=== PATIENT | female | born 1975 | race Two or more races ===

== ENCOUNTER → 2024-08-04 | Outpatient (CLI) | payer MEDICAID, SELFPAY ==
--- NOTE | 2024-08-04 13:00 | XR_ITS ---
Examination: Breast ultrasound, unilateral, right complete Date and time of exam: August 04, 2024 1340 hours INDICATIONS: Right breast sonogram February 09, 2024 10:00 nodule 10 mm, patient states right breast pain 15 days Technique: Real-time lopez scale ultrasonographic imaging performed right breast including all 4 quadrants as well as nipple retroareolar and axillary region. Findings: 10:00 oval mass lobular margins 9 x 9 mm Retroareolar cyst 6 x 9 mm 12:00 cyst 11 x 10 mm 3.9 cm right axillary lymph node IMPRESSION: BI-RADS Category 3: Probably benign findings One additional 6 month right breast sonogram follow-up is needed to document stability of solid nodules described above
--- NOTE | 2024-08-04 13:45 | XR_ITS ---
Examination: Diagnostic digital mammography, unilateral, right Computer aided detection 3-D breast Tomosynthesis, unilateral Date and time of exam: 2024 1340 hours INDICATIONS: Nodule upper outer right breast on mammogram February 09, 2024 Technique: Nonmagnified MLO, CC views of the right breast have been obtained, reconstructed from 3-D Tomosynthesis images. R2 computer aided detection program utilized for evaluation of suspicious masses and/or abnormal calcifications. 3-D Tomosynthesis images obtained. Findings: Scattered areas of fibroglandular density. Stable nodule upper outer right breast Impression: BI-RADS category 3: Probably benign findings Recommend 6 month bilateral mammography follow-up
== END | disposition home or self-care (01) ==
LOC: CDIM 13:09
PROVIDERS: PCP Physician Assistant; Referring Provider Physician Assistant; Visit Provider Physician Assistant
DX: R92.331 Mammographic heterogeneous density, right breast (principal); N63.11 Unspecified lump in the right breast, upper outer quadrant; N60.01 Solitary cyst of right breast
CPT/HCPCS: 76641; 77061; 77065; G0279

== ENCOUNTER 2024-08-18 08:56 | Outpatient (AMB) | payer MEDICAID, SELFPAY ==
--- NOTE | 2024-08-18 09:39 | ORTHONT_ITS ---
Vital signs 08/18/24 09:40 Height 1.65 m Height Method Stated Weight 104.865 kg Weight Measurement Method Standing Scale BMI 38.5 BP 140/82 H Blood Pressure Source Automatic Cuff Blood Pressure Location Right Upper Arm Position Sitting Respiration 18 Pulse 88 Pulse Source Monitor Temp 97.1 F Temp Source Temporal Artery Scan Pulse Oximetry (%) 98 Oxygen Delivery Method Room Air Med/Allergies Allergies & Medications Allergies No Known Allergies Allergy (Verified 08/18/24 09:43) Medication Reconciliation loratadine 10 mg tablet 10 mg PO QDAY 03/18/21 [History Confirmed 08/18/24] metformin 500 mg tablet 500 mg PO QDAY 03/18/21 [History Confirmed 08/18/24] celecoxib 200 mg capsule (Celebrex) 200 mg PO QDAY 11/04/22 [History Confirmed 08/18/24] divalproex 500 mg tablet,delayed release (Depakote) 500 mg PO BID 11/04/22 [History Confirmed 08/18/24] acetaminophen 650 mg tablet,extended release 650 mg PO Q12H PRN fever or pain #30 tabs 11/05/22 [Rx Confirmed 08/18/24] ibuprofen 800 mg tablet 800 mg PO Q8H PRN pain #30 tabs 11/05/22 [Rx Confirmed 08/18/24] diclofenac sodium 1 % topical gel 2 g topical QID PRN pain, moderate #100 grams 05/08/23 [Rx Confirmed 08/18/24] hydrocodone 5 mg-acetaminophen 325 mg tablet 1 tab PO Q8H PRN pain #7 tabs 05/08/23 [Rx Confirmed 08/18/24] Exam Exam Patient is in no acute distress and is cooperative with the examination today. Breathing is nonlabored. In no respiratory distress. Bilateral extremities were evaluated and demonstrates sensation intact to light touch. Palpable pedal pulses are present. No significant edema is present. Bilateral hips were examined. The patient has no pain with log roll of the hips. Internal rotation to 30 degrees and external rotation to 30 degrees is painless. Negative FADIR. The left knee was examined. The left knee is in varus alignment. Range of motion from 0-115 degrees. Knee is stable to varus and valgus as well as AP translation with <5mm. Patient has a negative McMurrays. There is no pain with patellofemoral compression and no crepitus noted. The knee is tender to palpation medially. The right knee was also examined. The right knee is in varus alignment. Range of motion from 0-120 degrees. Knee is stable to varus and valgus as well as AP translation with <5mm. Patient has a negative McMurrays. There is no pain with patellofemoral compression and no crepitus noted. The knee is tender to palpation medially. Patient has bilateral knee MRIs that demonstrate degenerative changes and severe arthritis Assessment and Plan Problem List (1) Degenerative arthritis of knee, bilateral: Status: Acute Plan: Patient is a pleasant 49-year-old female with bilateral knee pain and bilateral knee arthritis. We will get new knee x-rays as her last knee x-rays were nonwe ightbearing and are over 2 years old. She likely has significant arthritis and we will discuss different treatment options. 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 4 (4640-0928) MA Intake Visit Data Collection New Patient or Established: New Patient (never been to [facility]) Reason for Visit:: BILATERAL KNEE PAIN Seen by Clinical Staff ONLY (RN/MA): No Airways Control Specialist Required: No PCP or OBGYN visit in last 3 months: Yes Hx Now: No Do You Feel Safe at Home: Yes Authorities Contacted: N/A Questionairres Past Medical History Past Medical History Have you ever been diagnosed with any of the following: Neurological Problems Seizures: Yes (last June 2022) Cardiology Problems Congestive Heart Failure: No Hypertension: No Varicose Veins: Yes Respiratory Problems Chronic Obstructive Pulmonary Disease (COPD): No Stomache/Intestinal Problems Ulcer: No Gastroesophageal Reflux Disease: No Obesity: Yes Genital/Urinary Problems Renal Disease: No Reproductive Problems Previous Pregnancies: Yes Musculoskeletal Problems Arthritis: Yes Endocrine Problems Diabetes Mellitus Type 1: No Diabetes Mellitus Type 2: Yes Blood Problems Anemia: No Psychologic Problems Depression: No Anxiety: No Other Problems Hospitalization: Yes (seizure) Shingles: No Falls: No Blood Transfusions: No Anesthesia Reactions: No MRSA: No VRSA: No Vancomycin-Resistant Enterococci: No Chicken Pox: No Measles: No Mumps: No Cancer: No Subjective Visit Visit for: new patient and knee (BILATERAL) Immunization / Flu Flu Vaccine in the Last 12 Months: Yes Flu Vaccine Exclusion Criteria: Already Received History of Present Illness Chief complaint: bilateral knee pain Michell is a pleasant 49-year-old female with bilateral knee pain for years, right worse than left. Her pain is constant and worse with activity. She has tried physical therapy. She had no relief from 1 cortisone injection in April 2023. She takes Diclofenac. She uses a cane sometimes. XR and MRI were nonweightbearing and done a year ago. She has a history of seizures controlled with medication. BMI is 38.5%. Pain Pain level (0-10): 8 Pain duration: CONSTANT Pain location: inside (medial) and anterior Pain quality: aching and tingling Pain timing: night, increases with activity and stairs Associated signs & symptoms: numbness, weakness and stiffness Ambulatory data Ambulatory device: none Treatments Number of previous injections: 1 Improvement with previous injections: No Number of Physical Therapy sessions: 12 Improvement with PT: No Improvement with NSAIDS: no Review of Systems Review of Systems: All systems negative unless otherwise noted in HPI.
[2024-08-18 09:40] VITALS: BP 140/82; PULSE 88; RESP 18; TEMP 36.2; O2SAT 98; BMI 38.5
--- NOTE | 2024-08-18 09:47 | XR_ITS ---
Examination: Bilateral AP knees 2 views Right lateral knee left lateral knee 2 views Bilateral axial knees single view TECHNIQUE: Bilateral AP knees standing single view, bilateral PA knees standing 30 degrees flexion single view Standing right lateral knee left lateral knee 2 views Bilateral axial knees single view total 5 views Exam date and time: August 18, 2024 0957 hours INDICATIONS: Bilateral knee pain beginning 3 years ago. FINDINGS: Significant osteopenia Bilateral severe narrowing medial joint spaces, [id number] Bilateral moderate to advanced osteoarthritis patellofemoral joints No fracture or dislocation involving either knee IMPRESSION: Bilateral severe narrowing medial joint spaces, [id number]
== END 2024-08-18 09:50 | disposition home or self-care (01) ==
LOC: HODSRG 08:56
PROVIDERS: PCP Physician Assistant; Referring Provider Physician Assistant; Supervising Provider Orthopaedic Surgery Adult Reconstructive Orthopaedic Surgery; Visit Provider Orthopaedic Surgery Adult Reconstructive Orthopaedic Surgery
DX: M17.0 Bilateral primary osteoarthritis of knee (principal); M25.562 Pain in left knee; M25.561 Pain in right knee; M25.862 Other specified joint disorders, left knee; M25.861 Other specified joint disorders, right knee; E11.9 Type 2 diabetes mellitus without complications
CPT/HCPCS: 73564; 99204; G0463

== ENCOUNTER 2024-09-06 11:10 | Outpatient (AMB) | payer MEDICAID, SELFPAY ==
--- NOTE | 2024-09-06 11:22 | PD.ORTHCLVIS ---
Vital signs 09/06/24 11:35 Height 1.65 m Height Method Stated Weight 103.164 kg Weight Measurement Method Standing Scale BMI 37.8 BP 120/81 Blood Pressure Source Automatic Cuff Blood Pressure Location Left Upper Arm Position Sitting Respiration 18 Pulse 88 Pulse Source Monitor Temp 97.0 F Temp Source Temporal Artery Scan Pulse Oximetry (%) 98 Oxygen Delivery Method Room Air Med/Allergies Allergies & Medications Allergies No Known Allergies Allergy (Verified 09/06/24 11:40) Medication Reconciliation loratadine 10 mg tablet 10 mg PO QDAY 03/18/21 [History Confirmed 09/06/24] metformin 500 mg tablet 500 mg PO QDAY 03/18/21 [History Confirmed 09/06/24] celecoxib 200 mg capsule (Celebrex) 200 mg PO QDAY 11/04/22 [History Confirmed 09/06/24] divalproex 500 mg tablet,delayed release (Depakote) 500 mg PO BID 11/04/22 [History Confirmed 09/06/24] acetaminophen 650 mg tablet,extended release 650 mg PO Q12H PRN fever or pain #30 tabs 11/05/22 [Rx Confirmed 09/06/24] ibuprofen 800 mg tablet 800 mg PO Q8H PRN pain #30 tabs 11/05/22 [Rx Confirmed 09/06/24] diclofenac sodium 1 % topical gel 2 g topical QID PRN pain, moderate #100 grams 05/08/23 [Rx Confirmed 09/06/24] hydrocodone 5 mg-acetaminophen 325 mg tablet 1 tab PO Q8H PRN pain #7 tabs 05/08/23 [Rx Confirmed 09/06/24] Exam Exam Patient is in no acute distress and is cooperative with the examination today. Breathing is nonlabored. In no respiratory distress. Bilateral extremities were evaluated and demonstrates sensation intact to light touch. Palpable pedal pulses are present. No significant edema is present. Bilateral hips were examined. The patient has no pain with log roll of the hips. Internal rotation to 30 degrees and external rotation to 30 degrees is painless. Negative FADIR. The left knee was examined. The left knee is in varus alignment. Range of motion from 0-115 degrees. Knee is stable to varus and valgus as well as AP translation with <5mm. Patient has a negative McMurrays. There is no pain with patellofemoral compression and no crepitus noted. The knee is tender to palpation medially. The right knee was also examined. The right knee is in varus alignment. Range of motion from 0-120 degrees. Knee is stable to varus and valgus as well as AP translation with <5mm. Patient has a negative McMurrays. There is no pain with patellofemoral compression and no crepitus noted. The knee is tender to palpation medially. Patient has bilateral knee MRIs that demonstrate degenerative changes and severe arthritis. Bilateral knee x-rays demonstrate severe arthritis of the right knee Assessment and Plan Problem List (1) Degenerative arthritis of knee, bilateral: Status: Acute Plan: Patient is a pleasant 49-year-old female with bilateral knee pain and bilateral knee arthritis. X-rays demonstrate complete obliteration of the medial joint space. She has failed conservative treatment including injections, anti-inflammatories, and home exercise program. We discussed that she is a little bit on the younger side for a total knee replacement but she has failed conservative treatment and she reports the pain is affecting her quality life. He does consider total knee replacement as a reasonable option. We also discussed that she is at high risk for complications included to total knee replacement at her age. Her BMI is currently 38 and we discussed the weight loss as well. Given her failure of conservative treatment, we will consider total knee replacement as a reasonable option The nature and purpose of the total knee replacement, alternative method(s) of treatment, the material risks involved, and the possibility of complications were fully explained to the patient. The patient does NOT have any of the following contraindications to TKA: - Active infection of the knee joint, OR - Active systemic bacteremia, OR - Active skin infection or open wound at surgical site, OR - Neuropathic arthritis, OR - Severe, rapidly progressive neurological disease, OR - Severe medical condition that makes risks of surgery outweigh the potential benefit The patient was told the most common risks and complications associated with a total knee replacement include, but are not limited to: blood clots in the leg, fatal pulmonary embolism, dislocation of the prosthesis, intraoperative and postoperative fractures of the femur or tibia, infection, failure of the prosthesis or grafting materials, complications from anesthesia, reactions to blood transfusions, postoperative leg length inequality, instability of the knee replacement, nerve damage or injury, vascular injury, delayed wound healing, infection, other injury or even . In addition, there are risks associated with anesthesia given during this operation. Also, the patient was told that after undergoing a total knee replacement there may still be persistent pain or disability. The patient was informed that the success of this operation in part depends upon the mechanical devices which are going to be implanted and that these devices can fail or malfunction, and may need to be repaired or replaced and there are no guarantees as to the longevity of this device or its parts and that it or its parts could fail prematurely. The patient was also notified that during the course of surgery, there may be a need to use bone graft from donors, and that any bone graft used will be carefully screened for communicable diseases, including AIDS, hepatitis, Guy-Creutzfeldt, or other diseases, but despite the screening procedures, there is a small chance that they could contract one of these diseases. Finally, the patient was asked to follow completely and fully with all advice and recommended treatments, and that recovery and ultimate outcome are affected by their compliance with recommended treatment. We discussed the risks, benefits and treatment alternatives, and the patient is interested in proceeding with surgery. We will try to set this up as expeditiously as possible. Office Procedures GNS Level of Care Nursing/Assessment Patient Status: Established Patient Nursing Assessment/Reassesment: Medication Reconciliation, Update PMH in EMR and Vital Signs Coordination of Care: Complex Care and Chronic Disease 1-5, Education Complex Pt/Fam, Consent,records obtained, informed consent, Results/Orders obtained and Staff clarify orders Special Needs: Language special needs Established Patient Charge Established Patient Point Assignment: 95 Established Patient Point Charge: EP Level 3 (80-115) [facility] Level of Care Nursing/Assessment Patient Status: Established Patient Nursing Assessment/Reassesment: Medication Reconciliation, Update PMH in EMR and Vital Signs Coordination of Care: Complex Care and Chronic Disease 1-5, Education Complex Pt/Fam, Consent,records obtained, informed consent, 2-3 Insurance Autorizations needed, Results/Orders obtained and Staff clarify orders Established Patient Charge Established Patient Point Assignment: 115 Established Patient Point Charge: EP Level 3 (80-115) [place] Intake Visit Data Collection New Patient or Established: Established Patient (seen at [facility] within 3 years) Reason for Visit:: XRAY RESULTS Seen by Clinical Staff ONLY (RN/MA): No Flume Worker Required: 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 PCP or OBGYN visit in last 3 months: Yes Hx Now: No Do You Feel Safe at Home: Yes Authorities Contacted: N/A Questionairres Past Medical History Past Medical History Have you ever been diagnosed with any of the following: Neurological Problems Seizures: Yes (last June 2022) Cardiology Problems Congestive Heart Failure: No Hypertension: No Varicose Veins: Yes Respiratory Problems Chronic Obstructive Pulmonary Disease (COPD): No Smoking: No Smoking Exposure: No Stomache/Intestinal Problems Ulcer: No Gastroesophageal Reflux Disease: No Obesity: Yes Genital/Urinary Problems Renal Disease: No Reproductive Problems Previous Pregnancies: Yes Musculoskeletal Problems Arthritis: Yes Endocrine Problems Diabetes Mellitus Type 1: No Diabetes Mellitus Type 2: Yes Blood Problems Anemia: No Psychologic Problems Depression: No Anxiety: No Other Problems Hospitalization: Yes (seizure) Shingles: No Falls: No Blood Transfusions: No Anesthesia Reactions: No MRSA: No VRSA: No Vancomycin-Resistant Enterococci: No Chicken Pox: No Measles: No Mumps: No Cancer: No Subjective Visit Visit for: follow up visit and x-rays Immunization / Flu Flu Vaccine in the Last 12 Months: No Flu Vaccine Exclusion Criteria: No Exclusion Criteria History of Present Illness Chief complaint: knee pain Michell is a pleasant 49-year-old female with bilateral knee pain for years, right worse than left. Her pain is constant and worse with activity. She has tried physical therapy. She had no relief from 1 cortisone injection in April 2023. She takes Diclofenac. She uses a cane sometimes. She has a history of seizures controlled with medication. BMI is 38.5%. Pain Pain level (0-10): 10 Pain duration: ALL DAY Pain location: inside (medial) and outside (lateral) Pain quality: sharp, dull and aching Pain timing: increases with activity Associated signs & symptoms: none Ambulatory data Ambulatory device: none Treatments Number of previous injections: 1 Improvement with previous injections: No Number of Physical Therapy sessions: 12 Improvement with PT: No Improvement with NSAIDS: no Review of Systems Review of Systems: All systems negative unless otherwise noted in HPI.
[2024-09-06 11:35] VITALS: BP 120/81; PULSE 88; RESP 18; TEMP 36.1; O2SAT 98; BMI 37.8
== END 2024-09-06 11:39 | disposition home or self-care (01) ==
LOC: HODSRG 11:10
PROVIDERS: PCP Physician Assistant; Referring Provider Physician Assistant; Supervising Provider Orthopaedic Surgery Adult Reconstructive Orthopaedic Surgery; Visit Provider Orthopaedic Surgery Adult Reconstructive Orthopaedic Surgery
DX: M17.0 Bilateral primary osteoarthritis of knee (principal)
CPT/HCPCS: 99213; G0463

== ENCOUNTER 2024-10-06 09:36 | Outpatient (AMB) | payer MEDICAID, SELFPAY ==
[2024-10-06 10:21] VITALS: BP 104/74; PULSE 84; RESP 18; TEMP 36.3; O2SAT 98; BMI 37.5
--- NOTE | 2024-10-06 10:21 | ORTHONT_ITS ---
Vital signs 10/06/24 10:21 Height 1.65 m Height Method Stated Weight 102.257 kg Weight Measurement Method Standing Scale BMI 37.5 BP 104/74 Blood Pressure Source Automatic Cuff Blood Pressure Location Right Upper Arm Position Sitting Respiration 18 Pulse 84 Pulse Source Monitor Temp 97.3 F Temp Source Temporal Artery Scan Pulse Oximetry (%) 98 Oxygen Delivery Method Room Air Med/Allergies Allergies & Medications Allergies No Known Allergies Allergy (Verified 10/06/24 10:22) Medication Reconciliation loratadine 10 mg tablet 10 mg PO QDAY 03/18/21 [History Confirmed 10/06/24] metformin 500 mg tablet 500 mg PO QDAY 03/18/21 [History Confirmed 10/06/24] celecoxib 200 mg capsule (Celebrex) 200 mg PO QDAY 11/04/22 [History Confirmed 10/06/24] divalproex 500 mg tablet,delayed release (Depakote) 500 mg PO BID 11/04/22 [History Confirmed 10/06/24] acetaminophen 650 mg tablet,extended release 650 mg PO Q12H PRN fever or pain #30 tabs 11/05/22 [Rx Confirmed 10/06/24] ibuprofen 800 mg tablet 800 mg PO Q8H PRN pain #30 tabs 11/05/22 [Rx Confirmed 10/06/24] diclofenac sodium 1 % topical gel 2 g topical QID PRN pain, moderate #100 grams 05/08/23 [Rx Confirmed 10/06/24] hydrocodone 5 mg-acetaminophen 325 mg tablet 1 tab PO Q8H PRN pain #7 tabs 05/08/23 [Rx Confirmed 10/06/24] Exam Exam Patient is in no acute distress and is cooperative with the examination today. Breathing is nonlabored. In no respiratory distress. Bilateral extremities were evaluated and demonstrates sensation intact to light touch. Palpable pedal pulses are present. No significant edema is present. Bilateral hips were examined. The patient has no pain with log roll of the hips. Internal rotation to 30 degrees and external rotation to 30 degrees is painless. Negative FADIR. The left knee was examined. The left knee is in varus alignment. Range of motion from 0-115 degrees. Knee is stable to varus and valgus as well as AP translation with <5mm. Patient has a negative McMurrays. There is no pain with patellofemoral compression and no crepitus noted. The knee is tender to palpation medially. The right knee was also examined. The right knee is in varus alignment. Range of motion from 0-120 degrees. Knee is stable to varus and valgus as well as AP translation with <5mm. Patient has a negative McMurrays. There is no pain with patellofemoral compression and no crepitus noted. The knee is tender to palpation medially. Patient has bilateral knee MRIs that demonstrate degenerative changes and severe arthritis. Bilateral knee x-rays demonstrate severe arthritis of the right knee with complete obliteration of the medial joint space and varus deformity. Assessment and Plan Problem List (1) Degenerative arthritis of knee, bilateral: Status: Acute Plan: Patient is a pleasant 49-year-old female with bilateral knee pain and bilateral knee arthritis. X-rays demonstrate complete obliteration of the medial joint space. She has failed conservative treatment including injections, anti- inflammatories, and home exercise program. We discussed that she is a little bit on the younger side for a total knee replacement but she has failed conservative treatment and she reports the pain is affecting her quality life. He does consider total knee replacement as a reasonable option. We also discussed that she is at high risk for complications included to total knee replacement at her age. Her BMI is currently 37 and we discussed the weight loss as well. Given her failure of conservative treatment, we will consider total knee replacement as a reasonable option The nature and purpose of the total knee replacement, alternative method(s) of treatment, the material risks involved, and the possibility of complications were fully explained to the patient. The patient does NOT have any of the following contraindications to TKA: - Active infection of the knee joint, OR - Active systemic bacteremia, OR - Active skin infection or open wound at surgical site, OR - Neuropathic arthritis, OR - Severe, rapidly progressive neurological disease, OR - Severe medical condition that makes risks of surgery outweigh the potential benefit The patient was told the most common risks and complications associated with a total knee replacement include, but are not limited to: blood clots in the leg, fatal pulmonary embolism, dislocation of the prosthesis, intraoperative and po stoperative fractures of the femur or tibia, infection, failure of the prosthesis or grafting materials, complications from anesthesia, reactions to blood transfusions, postoperative leg length inequality, instability of the knee replacement, nerve damage or injury, vascular injury, delayed wound healing, infection, other injury or even . In addition, there are risks associated with anesthesia given during this operation. Also, the patient was told that after undergoing a total knee replacement there may still be persistent pain or disability. The patient was informed that the success of this operation in part depends upon the mechanical devices which are going to be implanted and that these devices can fail or malfunction, and may need to be repaired or replaced and there are no guarantees as to the longevity of this device or its parts and that it or its parts could fail prematurely. The patient was also notified that during the course of surgery, there may be a need to use bone graft from donors, and that any bone graft used will be carefully screened for communicable diseases, including AIDS, hepatitis, Guy-Creutzfeldt, or other diseases, but despite the screening procedures, there is a small chance that they could contract one of these diseases. Finally, the patient was asked to follow completely and fully with all advice and recommended treatments, and that recovery and ultimate outcome are affected by their compliance with recommended treatment. We discussed the risks, benefits and treatment alternatives, and the patient is interested in proceeding with surgery. We will try to set this up as expeditiously as possible. Office Procedures GNS Level of Care Nursing/Assessment Patient Status: Established Patient Nursing Assessment/Reassesment: Medication Reconciliation, Update PMH in EMR and Vital Signs Coordination of Care: Complex Care and Chronic Disease 1-5, Consent,records obtained, informed consent, Education Simp Pt/Fam, Results/Orders obtained and Staff clarify orders Special Needs: Language special needs ([place] ) Established Patient Charge Established Patient Point Assignment: 90 Established Patient Point Charge: EP Level 3 (80-115) MA Intake Visit Data Collection New Patient or Established: Established Patient (seen at [facility] within 3 years) Reason for Visit:: PRE OP RT TKA Seen by Clinical Staff ONLY (RN/MA): No 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 PCP or OBGYN visit in last 3 months: Yes Hx Now: No Do You Feel Safe at Home: Yes Authorities Contacted: N/A Questionairres Past Medical History Past Medical History Have you ever been diagnosed with any of the following: Neurological Problems Seizures: Yes (last June 2022) Cardiology Problems Congestive Heart Failure: No Hypertension: No Varicose Veins: Yes Respiratory Problems Chronic Obstructive Pulmonary Disease (COPD): No Smoking: No Smoking Cessation Counseling: No Smoking Exposure: No Stomache/Intestinal Problems Ulcer: No Gastroesophageal Reflux Disease: No Obesity: Yes Genital/Urinary Problems Renal Disease: No Reproductive Problems Previous Pregnancies: Yes Musculoskeletal Problems Arthritis: Yes Endocrine Problems Diabetes Mellitus Type 1: No Diabetes Mellitus Type 2: Yes Blood Problems Anemia: No Psychologic Problems Depression: No Anxiety: No Other Problems Hospitalization: Yes (seizure) Shingles: No Falls: No Blood Transfusions: No Anesthesia Reactions: No MRSA: No VRSA: No Vancomycin-Resistant Enterococci: No Chicken Pox: No Measles: No Mumps: No Cancer: No Subjective Visit Visit for: follow up visit and knee (RT ) Immunization / Flu Flu Vaccine in the Last 12 Months: No Flu Vaccine Exclusion Criteria: Refused by Patient History of Present Illness Chief complaint: knee pain Michell is a pleasant 49-year-old female with bilateral knee pain for years, right worse than left. Her pain is constant and worse with activity. She has tried physical therapy. She had no relief from 1 cortisone injection in April 2023. She takes Diclofenac. She uses a cane sometimes. She has a history of seizures controlled with medication. BMI is 37.5%. Personal History Red flag PMH: none Pain Pain level (0-10): 10 Pain duration: +3 YEARS Pain location: anterior Pain quality: dull and burning Pain timing: night and increases with activity Associated signs & symptoms: stiffness Ambulatory data Ambulatory device: none Walking distance (minutes): 5 Treatments Number of previous injections: 1 Improvement with previous injections: No Number of Physical Therapy sessions: 12 Improvement with PT: No Improvement with NSAIDS: n/a Review of Systems Review of Systems: All systems negative unless otherwise noted in HPI.
== END 2024-10-06 10:39 | disposition home or self-care (01) ==
PROVIDERS: PCP Physician Assistant; Referring Provider Physician Assistant; Supervising Provider Orthopaedic Surgery Adult Reconstructive Orthopaedic Surgery; Visit Provider Orthopaedic Surgery Adult Reconstructive Orthopaedic Surgery
DX: M17.0 Bilateral primary osteoarthritis of knee (principal); M25.562 Pain in left knee; M25.561 Pain in right knee
CPT/HCPCS: 99213; G0463

== ENCOUNTER → 2024-10-18 | Outpatient (CLI) | payer MEDICAID, SELFPAY ==
[2024-10-18 16:07] LABS: HCG Qualitative,Urine Negative
== END | disposition home or self-care (01) ==
PROVIDERS: PCP Physician Assistant; Referring Provider Orthopaedic Surgery Adult Reconstructive Orthopaedic Surgery; Visit Provider Orthopaedic Surgery Adult Reconstructive Orthopaedic Surgery
DX: Z53.8 Procedure and treatment not carried out for other reasons (principal)
CPT/HCPCS: 81025

== ENCOUNTER → 2024-10-19 | Outpatient (CLI) | payer MEDICAID, SELFPAY ==
--- NOTE | 2024-10-19 | XR_ITS ---
Examination: CT right lower extremity, without contrast. 2-D sagittal reconstructions. 2-D coronal reconstructions. 3-D reconstructions. Date and time of exam:October 19, 2024 0805 hours INDICATIONS: Diagnosis right knee unilateral osteoarthritis right knee pain 3 years CTDI: vol (mGy):12.7 DLP: (mGycm):935 Technique: Multiple 1.25 mm axial sections of the right lower without intravenous contrast have been obtained. 2-D sagittal and coronal reconstructions have been obtained. 3-D reconstructions have been obtained. Low dose protocols were performed. One or more of the following dose reduction techniques were used; automated exposure control, adjustment of the mA and/or KV according to patient size, use of iterative reconstruction technique. Findings: Mild osteopenia Mild to moderate narrowing right hip joint No right hip fracture or dislocation No avascular necrosis Moderate to advanced tricompartment osteoarthritis, most severe narrowing medial joint space and lateral patellofemoral joint No fracture No avascular necrosis IMPRESSION: Moderate to advanced tricompartment osteoarthritis
== END | disposition home or self-care (01) ==
PROVIDERS: Referring Provider Orthopaedic Surgery Adult Reconstructive Orthopaedic Surgery; Visit Provider Orthopaedic Surgery Adult Reconstructive Orthopaedic Surgery
DX: M17.11 Unilateral primary osteoarthritis, right knee (principal)
CPT/HCPCS: 73700

== ENCOUNTER 2024-10-24 05:45 | Day surgery (SDC) | payer MEDICAID, SELFPAY ==
--- NOTE | 2024-10-21 06:25 | EKG_ITS ---
[facility] Test Date: 2024-10-21 Pat Name: KARLOS MARTINEZ Department: Room: - Gender: Female Director Of Education: [facility] : 1975 Requested By: Joseph Roman Order Number: [id number] Reading MD: Joseph Roman Measurements Intervals [place] Rate: 70 P: 17 MS: 158 QRS: 33 QRSD: 85 T: 7 QT: 391 QTc: 422 Interpretive Statements SINUS RHYTHM NONSPECIFIC T-WAVE ABNORMALITY Compared to ECG 11/04/2022 08:05:48 T-wave abnormality now present /store/S0/[id number].pdf
[2024-10-21 08:48] VITALS: BMI 37.5
[2024-10-21 11:36] LABS: Basophils % (Auto) 0 % (0-2.5); Eosinophils # (Auto) 0.1 Thou/mm3 (0.0-0.5); Eosinophils % (Auto) 1 % (0-10); Hematocrit 39.4 % (36.0-46.0); Immature Granulocytes % (Auto) 0 % (0-0); Immature Granulocytes Auto 0.03 Thou/mm3 (0.00-0.00); Lymphocytes # (Auto) 2.4 Thou/mm3 (1.0-4.8); Lymphocytes % (Auto) 34 % (10-50); Mean Corpuscular Hemoglobin 28.3 pg (25.0-35.0); Mean Corpuscular Volume 86 fL (80-100); Monocytes # (Auto) 0.5 Thou/mm3 (0.0-0.8); Monocytes % (Auto) 7 % (0-12); Neutrophils # (Auto) 3.9 Thou/mm3 (1.8-7.7); Neutrophils % (Auto) 57 % (37-80); Nucleated Red Blood Cell % 0 /100 WBC (0); Platelet Count 350 Thou/mm3 (140-440); RDW Standard Deviation 48.7 fL (36.4-46.3); White Blood Count 6.9 Thou/mm3 (3.6-11.0)
[2024-10-21 11:41] LABS: HCG,Qualitative Serum Negative
[2024-10-21 11:47] LABS: Alanine Aminotransferase 30 U/L (10-49); Albumin, Serum 4.1 gm/dL (3.5-5.0); Albumin/Globulin Ratio 1.5 (1.2-2.2); Alkaline Phosphatase 92 U/L (46-116); Anion Gap 8 (7-16); Aspartate Amino Transferase 23 U/L (0-34); BUN/Creatinine Ratio 19 Ratio (12-20); Bilirubin,Total 0.4 mg/dL (0.3-1.2); Blood Urea Nitrogen 15 mg/dL (9-23); Calcium 9.1 mg/dL (8.3-10.6); Calcium (Corrected) 9.1 mg/dL (8.5-10.1); Carbon Dioxide 26.6 mMol/L (20.0-31.0); Chloride 106 mMol/L (98-107); Creatinine (Component) 0.8 mg/dL (0.6-1.3); Estimated Creatinine Clearance 102.1 mL/min (>60); Globulin 2.7 gm/dL (2.3-3.5); Glucose 100 mg/dL (74-106); Osmolality,Calculated 282 (275-295); Potassium 4.3 mMol/L (3.4-5.1); Sodium 141 mMol/L (136-145); Total Protein 6.8 gm/dL (5.7-8.2); eGFR > 60 See Note
[2024-10-21 12:14] LABS: Partial Thromboplastin Time 27.4 Seconds (22.0-36.0); Prothrombin Time 10.6 Seconds (9.0-12.2)
--- NOTE | 2024-10-21 14:48 | SUR.PREOP ---
Pt notified to come in at 0545 for surgery on Thursday.
[2024-10-24] VITALS (21 sets, daily range): BP systolic 103–154; BP diastolic 66–103; PULSE 65–90; RESP 12–21; TEMP 36.1–36.5; O2SAT 95–100; BMI 39.4
[2024-10-24] MEDS: MELOXICAM 7.5 MG TABLET PO (06:34)
[2024-10-24] MEDS: PREGABALIN 75 MG CAPSULE PO (06:34)
[2024-10-24] MEDS: ACETAMINOPHEN 325 MG TABLET 650 MG PO (06:34)
[2024-10-24] MEDS: RINGERS LACTATED 1000 ML 1,000 ML 20 ML IV (06:36)
--- NOTE | 2024-10-24 09:21 | ESOP_ITS ---
Date of Procedure 10/24/24 Pre Op Diagnosis right knee osteoarthritis Post Op Diagnosis right knee osteoarthritis Procedure right total knee replacement quentin Findings full thickness cartilage loss and osteophytes Procedure Description Indication: The patient is a 49 year old who has a long history of right knee pain. X-rays show degenerative arthritis involving the knee. Over the past several years the patient has had increasing pain, progressive limitation in function. He has failed conservative measures including activity modification, physical therapy, injections, anti-inflammatories, and assistive devices. After a lengthy discussion of the risks and benefits, the patient presents now for total knee replacement. The nature and purpose of the total knee replacement, alternative method(s) of treatment, the material risks involved, and the possibility of complications were fully explained to the patient. The patient was told the most common risks and complications associated with a total knee replacement include, but are not limited to blood clots in the leg, fatal pulmonary embolism, dislocation of the prosthesis, intraoperative and postoperative fractures of the femur or tibia, infection, failure of the prosthesis or grafting materials, complications from anesthesia, reactions to blood transfusions, postoperative leg length inequality, instability of the knee replacement, nerve damage or injury, vascular injury, delayed wound healing, infections, other injury or even . In addition, there are risks associated with anesthesia given during this operation, temporary or permanent numbness on the skin lateral to the incision can be a complication unique to total knee surgery, and kneeling can be painful after knee replacement surgery. Also, the patient was told that after undergoing a total knee replacement there may still be pain or disability. We discussed with the patient that we will be using a robot-assisted technology. We discussed that there is a possibility of converting to manual instrumentation. The patient was informed that the success of this operation in part depends upon the mechanical devices which are going to be implanted and that these devices can fail or malfunction, and may need to be repaired or replaced and there are no guarantees as to the longevity of this device or its part and that it or its parts could fail prematurely. Finally, the patient was asked to follow completely and fully with all advice and recommended treatments, and that recovery and ultimate outcome are affected by their compliance with recommended treatment. Surgical technique: Patient was marked and consented in the pre-operative area. The patient was brought to the operating room and placed on the operating table in a supine position. Prior to positioning, a timeout procedure was performed between the surgeon, the anesthesiologist, and the nursing staff where the patient and the operative side were identified and confirmed. After adequate general anesthetic was obtained, the right lower extremity was prepped and draped in the usual sterile fashion. A weight based dose of Cefazolin were administered within 1 hour prior to incision. The robot was preregistered and calirated before the incision. The extremity was exsanguinated with an esmarch badge and tourniquet inflated to 250mmHg. A midline incision was made. A median parapatellar arthrotomy was made. The patella was subluxed laterally. A medial release was performed to expose the medial tibia. His femoral and tibial pins were placed through an intra incisional manner for both cases. Every effort was made to ensure that the distalmost aspect of the pin was hung in the second cortex. The arrays were then tightened several times to ensure that it was fixed for the remainder of the case. Both femoral and tibial checkpoints were then placed. We then went through the registration process of the bone. We then assessed the knee deformity and attempted to correct it. We also used the robot to aid in judging laxity in both extension and flexion. Final based on laxity and alignment we changed the preoperative assessment to obtain proper proper implant positioning and to correct deformity. Attention was then placed to the tibia. We made a tibial cut using the robot ensuring that both the MCL and the patella tendon were protected with retractors. We then went to the femur and made the posterior cut followed by the anterior cut and the anterior chamfer. The bone was then removed and we made a distal femur cut and a posterior chamfer cut. We verified all cuts. A trial reduction was performed with a size 3 femoral component and a size 3 keeled tibial component. The patella tracked centrally, and no lateral retinacular release was necessary. The trial implants were removed. The arrays, pins, and checkpoints were all removed. We performed a verification that all pins were removed. The cut bone surfaces were lavaged. A size 3 right femoral component, a size 3 keeled tibial component were impacted into position. The knee was felt to be well balanced in the sagittal and coronal plane. The final 3x12 mm cruciate- substituting articular insert was impacted into the tibial tray. The knee was brought out to full extension, flexed up to 120 degrees. It was stable to varus and valgus stress and appropriately balanced in flexion and extension. The wounds were copiously irrigated following deflation of tourniquet. The medial retinaculum was reapproximated with #1 vicryl and quill. The subcutaneous tissues were closed with 0 and 2-0 interrupted Vicryl. The skin was closed with 3-0 Monofilament V loc suture. A sterile dressing was applied. The patient was transferred to a bed and brought to recovery in stable condition. The patient tolerated the procedure well. There were no intraoperative complications. Sponge and needle counts were correct times 2. As the attending surgeon, I guelrine I was present and performed the entire operation. Grafts/Implants Size 3 CR Femur Size 3 Tibia 12mm poly CS Anesthesia spinal Implants gary Pathology / specimen None Pathology comment: none Estimated Blood Loss 150 Condition Stable Disposition same day Surgeon Arjun Hall MD Surgical Staff Operation Date: 10/24/24 07:30 Case Staff Anesthesiologist: Derrick Monteiro RN First Assistant: Katelin Beckford
--- NOTE | 2024-10-24 09:23 | XR_ITS ---
Examination: Right knee 2 views Technique : AP lateral right knee 2 views supine portable Exam date and time: 08/18/2024 1027 hours INDICATIONS: Postop knee arthroplasty FINDINGS: Total right knee arthroplasty. Satisfactory alignment No fracture IMPRESSION: Total right knee arthroplasty with satisfactory alignment
--- NOTE | 2024-10-24 09:52 | SUR.PHASEI ---
pt received from OR in recovery bay 4. pt obtunded, breathing unlabored on oxymask 8l, oral airway in place. v/s stable. pt dressing to right lower extremity cdi. report received from Dr. Monteiro and Christiano WOOTEN.
[2024-10-24] MEDS: ONDANSETRON INJ 2 MG/ML INJ 2 ML 4 MG IV (10:42)
[2024-10-24] MEDS: METOCLOPRAMIDE INJ 5 MG/ML VIAL 2 ML 10 MG IVP (10:50)
[2024-10-24] MEDS: PROMETHAZINE INJ 12.5 MG in SODIUM CHLORIDE 0.9% 50 ML 2.5 MG IV (11:22)
--- NOTE | 2024-10-24 12:25 | SUR.PHASEII ---
Received report on pt. s/p surgery from Laith WOOTEN. Pt. is resting with eyes closed, VSS, dressing to right knee CDI.
[2024-10-24] MEDS: fentaNYL CIT INJ 50 mCg/ML AMP 2ML 25 MCG IV (13:21)
--- NOTE | 2024-10-24 13:40 | SUR.PHASEII ---
pt failed physical therapy x1.
--- NOTE | 2024-10-24 16:57 | SUR.PHASEII ---
pt awake and alert, breathing unlabored on room air. v/s stable. pt dressing to right lower extremity cdi. pt cleared by physical therapist Francis. pt able to ambulate using walker. pt able to transfer to wheelchair with steady gait. d/c instructions given with daughter Glenna in room, all questions answered. pt d/c via wheelchair with all belongings.
== END 2024-10-24 16:57 | disposition home or self-care (01) ==
PROVIDERS: Anesthesiology; PCP Physician Assistant; Referring Provider Orthopaedic Surgery Adult Reconstructive Orthopaedic Surgery; Visit Provider Orthopaedic Surgery Adult Reconstructive Orthopaedic Surgery
PROC: (CPT 27447; principal; 2024-10-24 07:30)
DX: M17.11 Unilateral primary osteoarthritis, right knee (principal); Z01.810 Encounter for preprocedural cardiovascular examination; M25.761 Osteophyte, right knee
CPT/HCPCS: 27447; 20985; 36415; 73560; 80053; 84703; 85025; 85610; 85730; 93005; 97162; A4217; C1713; C1776; J0690; J1100; J1885; J2250; J2405; J2550; J2704; J2765; J2795; J3010; J3490; J7030; J7120; J7999; A4648; A4649; A9270

== ENCOUNTER 2024-11-08 10:39 | Outpatient (AMB) | payer MEDICAID, SELFPAY ==
--- NOTE | 2024-11-08 10:56 | PD.ORTHCLVIS ---
Vital signs 11/08/24 11:00 Height 1.65 m Height Method Stated Weight 99.45 kg Weight Measurement Method Standing Scale BMI 36.5 BP 130/81 Blood Pressure Source Automatic Cuff Blood Pressure Location Left Upper Arm Position Sitting Respiration 18 Pulse 87 Pulse Source Monitor Temp 96.5 F L Temp Source Temporal Artery Scan Pulse Oximetry (%) 96 Oxygen Delivery Method Room Air Med/Allergies Allergies & Medications Allergies No Known Allergies Allergy (Verified 11/08/24 11:00) Medication Reconciliation divalproex 500 mg tablet,delayed release (Depakote) 1,000 mg PO DAILY 11/04/22 [History Confirmed 11/08/24] diclofenac potassium 50 mg tablet 50 mg PO BID 10/21/24 [History Confirmed 11/08/24] semaglutide (weight loss) 1 mg/0.5 mL subcutaneous pen injector (Wegovy) 1 mg subcut QWEEK 10/21/24 [History Confirmed 11/08/24] aspirin 81 mg tablet,delayed release 81 mg PO BID #60 tabs 10/24/24 [Rx Confirmed 11/08/24] doxycycline hyclate 100 mg tablet 100 mg PO BID #14 tabs 10/24/24 [Rx Confirmed 11/08/24] gabapentin 300 mg capsule 300 mg PO .qhs #30 caps 10/24/24 [Rx Confirmed 11/08/24] oxycodone 5 mg tablet 5 mg PO Q6H PRN pain #28 tabs 10/24/24 [Rx Confirmed 11/08/24] sennosides 8.6 mg-docusate sodium 50 mg tablet (Senna-S) 1 tab-cap PO QDAY #30 tabs 10/24/24 [Rx Confirmed 11/08/24] acetaminophen 500 mg tablet (Acetaminophen Extra Strength) 1,000 mg (2 x 500 mg) PO Q6H PRN pain #90 tabs 11/08/24 [Rx] Exam Exam Patient is in no acute distress and is cooperative with the examination today. Breathing is nonlabored. In no respiratory distress. Bilateral extremities were evaluated and demonstrates sensation intact to light touch. Palpable pedal pulses are present. No significant edema is present. Bilateral hips were examined. The patient has no pain with log roll of the hips. Internal rotation to 30 degrees and external rotation to 30 degrees is painless. Negative FADIR. The left knee was examined. The left knee is in varus alignment. Range of motion from 0-115 degrees. Knee is stable to varus and valgus as well as AP translation with <5mm. Patient has a negative McMurrays. There is no pain with patellofemoral compression and no crepitus noted. The knee is tender to palpation medially. Right knee incision is clean dry and intact. Range of motion is 0 to 100 degrees Assessment and Plan Problem List (1) Degenerative arthritis of knee, bilateral: Status: Acute Plan: Patient is a pleasant 49-year-old female with bilateral knee pain and bilateral knee arthritis. Patient is doing well status post left total knee replacement. We will get her started with physical therapy. Will see her in 4 weeks for routine follow-up. Office Procedures GNS Level of Care Nursing/Assessment Patient Status: Established Patient Nursing Assessment/Reassesment: Medication Reconciliation, Update PMH in EMR and Vital Signs Coordination of Care: Complex Care and Chronic Disease 1-5, Education Complex Pt/Fam, Consent,records obtained, informed consent, Results/Orders obtained and Staff clarify orders Established Patient Charge Established Patient Point Assignment: 95 Established Patient Point Charge: EP Level 3 (80-115) Questionairres Past Medical History Past Medical History Have you ever been diagnosed with any of the following: Neurological Problems Seizures: No Cardiology Problems Congestive Heart Failure: No Hypertension: No Varicose Veins: Yes Respiratory Problems Chronic Obstructive Pulmonary Disease (COPD): No Smoking: No Smoking Cessation Counseling: No Smoking Exposure: No Stomache/Intestinal Problems Ulcer: No Gastroesophageal Reflux Disease: No Obesity: Yes Genital/Urinary Problems Renal Disease: No Reproductive Problems Previous Pregnancies: Yes Musculoskeletal Problems Arthritis: Yes Endocrine Problems Diabetes Mellitus Type 1: No Diabetes Mellitus Type 2: Yes (no longer taking metformin, pt stated primary Dr took her off) Blood Problems Anemia: Yes Psychologic Problems Depression: No Anxiety: No Other Problems Hospitalization: Yes (seizure) Shingles: No Falls: No Blood Transfusions: No Blood Transfusion Reaction: No Anesthesia Reactions: No MRSA: No VRSA: No Vancomycin-Resistant Enterococci: No Chicken Pox: No Measles: No Mumps: No Cancer: No Subjective Visit Visit for: follow up visit, post op #1 and knee Immunization / Flu Flu Vaccine in the Last 12 Months: No Flu Vaccine Exclusion Criteria: No Exclusion Criteria History of Present Illness Chief complaint: knee pain Michell is a pleasant 49-year-old female with bilateral knee pain for years, right worse than left. She is doing well status post right total knee replacement. Personal History Red flag PMH: none Pain Pain level (0-10): 4 Pain duration: COMES AND GOES Pain location: inside (medial) and anterior Pain quality: dull and aching Pain timing: increases with activity Associated signs & symptoms: stiffness Ambulatory data Ambulatory device: walker Walking distance (minutes): 5 Treatments Number of previous injections: 1 Improvement with previous injections: No Number of Physical Therapy sessions: 12 Improvement with PT: No Improvement with NSAIDS: no Review of Systems Review of Systems: All systems negative unless otherwise noted in HPI.
[2024-11-08 11:00] VITALS: BP 130/81; PULSE 87; RESP 18; TEMP 35.8; O2SAT 96; BMI 36.5
== END 2024-11-08 11:36 | disposition home or self-care (01) ==
LOC: HODSRG 10:39
PROVIDERS: PCP Physician Assistant; Referring Provider Physician Assistant; Supervising Provider Orthopaedic Surgery Adult Reconstructive Orthopaedic Surgery; Visit Provider Orthopaedic Surgery Adult Reconstructive Orthopaedic Surgery
DX: M17.0 Bilateral primary osteoarthritis of knee (principal); Z96.653 Presence of artificial knee joint, bilateral
CPT/HCPCS: 99213; G0463

== ENCOUNTER 2024-11-23 13:14 | Outpatient (RCR) | payer MEDICAID, SELFPAY ==
--- NOTE | 2024-11-23 13:35 | PT.OIERPT ---
PT OP Initial Eval Patient Information Outpatient Physical Therapy Treatment Date: 11/23/24 Visit Reasons: Right TKA Medical Diagnosis: Right Knee OA Treatment Dx #1: Right Knee Mobility Deficits Treatment Dx #2: Right Knee Weakness Start of Care: 11/23/24 Date of Onset: 10/24/24 Smoking Status Smoking Status: Never smoker Initial Assessment Subjective: Pt is a 49 y/o female s/p right TKA 10/24/24. Pt still has pain 6/10 with activities. Pt has limitation with walking, standing, chores, self care, cooking, cleaning, and performing recreational activities. Objective: Right Knee AROM: -8 deg to 119 deg Right Knee MMTs: grossly 3+/5 Right Hip MMTs: grossly 3+/5 Active SLR: 75 deg SLS: NT Assessment: Pt demonstrate right knee mobility and strength deficits s/p TKA leading to difficulty with ADLs. 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 1) Increase right knee flexion AROM to 120 deg in 12 wks to be able to perform squatting activities 2) Decrease knee pain to 2/10 in 12 wks to be able to stand more than 30 mins 3) Increase right hip MMTs grossly to 4-/5 in 12 wks to be able to walk more than 30 mins 4) Increase knee MMTs grossly to 4/5 in 12 wks to be able to perform stairs and steps 5) Increase SLS to 20 sec in 12 wks to be able to perfrom self care activities 6) Indep with HEP Treatment Plan 1) Manual Therapy 2) Therapeutic Activities 3) Therapeutic Exercises 4) Modalities (ice, heat) 5) Balance Training 6) Gait Training Frequency and Duration: 2 x wk for 12 wks Certification Dates: 11/23/24 to 02/23/25 Procedure Charges OP PT Eval Mod Complex 30 minutes: Yes
== END 2024-11-26 23:59 | disposition home or self-care (01) ==
LOC: CPTX 13:14
PROVIDERS: PCP Orthopaedic Surgery Adult Reconstructive Orthopaedic Surgery; Referring Provider Orthopaedic Surgery Adult Reconstructive Orthopaedic Surgery; Visit Provider Orthopaedic Surgery Adult Reconstructive Orthopaedic Surgery
DX: M25.561 Pain in right knee (principal); R53.1 Weakness; R26.2 Difficulty in walking, not elsewhere classified; Z96.651 Presence of right artificial knee joint; M17.11 Unilateral primary osteoarthritis, right knee
CPT/HCPCS: 97162

== ENCOUNTER 2024-12-06 11:09 | Outpatient (AMB) | payer MEDICAID, SELFPAY ==
--- NOTE | 2024-12-06 11:18 | ORTHONT_ITS ---
Vital signs 12/06/24 11:19 Height 1.65 m Height Method Stated Weight 98.203 kg Weight Measurement Method Patient Lift Scale BMI 36.1 BP 116/82 Blood Pressure Source Automatic Cuff Blood Pressure Location Right Upper Arm Position Sitting Respiration 18 Pulse 97 Pulse Source Monitor Temp 96.9 F Temp Source Temporal Artery Scan Pulse Oximetry (%) 96 Oxygen Delivery Method Room Air Med/Allergies Allergies & Medications Allergies No Known Allergies Allergy (Verified 12/06/24 11:19) Medication Reconciliation divalproex 500 mg tablet,delayed release (Depakote) 1,000 mg PO DAILY 11/04/22 [History Confirmed 12/06/24] diclofenac potassium 50 mg tablet 50 mg PO BID 10/21/24 [History Confirmed 12/06/24] semaglutide (weight loss) 1 mg/0.5 mL subcutaneous pen injector (Wegovy) 1 mg subcut QWEEK 10/21/24 [History Confirmed 12/06/24] aspirin 81 mg tablet,delayed release 81 mg PO BID #60 tabs 10/24/24 [Rx Confirmed 12/06/24] doxycycline hyclate 100 mg tablet 100 mg PO BID #14 tabs 10/24/24 [Rx Confirmed 12/06/24] gabapentin 300 mg capsule 300 mg PO .qhs #30 caps 10/24/24 [Rx Confirmed 12/06/24] oxycodone 5 mg tablet 5 mg PO Q6H PRN pain #28 tabs 10/24/24 [Rx Confirmed 12/06/24] sennosides 8.6 mg-docusate sodium 50 mg tablet (Senna-S) 1 tab-cap PO QDAY #30 tabs 10/24/24 [Rx Confirmed 12/06/24] acetaminophen 500 mg tablet (Acetaminophen Extra Strength) 1,000 mg (2 x 500 mg) PO Q6H PRN pain #90 tabs 11/08/24 [Rx Confirmed 12/06/24] Exam Exam Patient is in no acute distress and is cooperative with the examination today. Breathing is nonlabored. In no respiratory distress. Bilateral extremities were evaluated and demonstrates sensation intact to light touch. Palpable pedal pulses are present. No significant edema is present. Bilateral hips were examined. The patient has no pain with log roll of the hips. Internal rotation to 30 degrees and external rotation to 30 degrees is painless. Negative FADIR. The left knee was examined. The left knee is in varus alignment. Range of motion from 0-115 degrees. Knee is stable to varus and valgus as well as AP translation with <5mm. Patient has a negative McMurrays. There is no pain with patellofemoral compression and no crepitus noted. The knee is tender to palpation medially. Right knee incision is clean dry and intact. Range of motion is 0 to 100 degrees Assessment and Plan Problem List (1) Degenerative arthritis of knee, bilateral: Status: Acute Plan: Patient is a pleasant 49-year-old female with bilateral knee pain and bilateral knee arthritis. Patient is doing well status post left total knee replacement. She is doing well with PT. We will see her for routine follow-up. Office Procedures GNS Level of Care Nursing/Assessment Patient Status: Established Patient Nursing Assessment/Reassesment: Medication Reconciliation, Update PMH in EMR and Vital Signs Coordination of Care: Complex Care and Chronic Disease 1-5, Education Complex Pt/Fam, Consent,records obtained, informed consent, Results/Orders obtained and Staff clarify orders Special Needs: Language special needs Established Patient Charge Established Patient Point Assignment: 95 Established Patient Point Charge: EP Level 3 (80-115) MA Intake Visit Data Collection New Patient or Established: Established Patient (seen at [facility] within 3 years) Reason for Visit:: POST OP RT TKA Seen by Clinical Staff ONLY (RN/MA): No Verbal consent obtained for Telemed visit?: No 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: No PCP or OBGYN visit in last 3 months: Yes Hx Now: No Do You Feel Safe at Home: Yes Authorities Contacted: N/A Questionairres Past Medical History Past Medical History Have you ever been diagnosed with any of the following: Neurological Problems Seizures: No Cardiology Problems Congestive Heart Failure: No Hypertension: No Varicose Veins: Yes Respiratory Problems Chronic Obstructive Pulmonary Disease (COPD): No Smoking: No Smoking Cessation Counseling: No Smoking Exposure: No Stomache/Intestinal Problems Ulcer: No Gastroesophageal Reflux Disease: No Obesity: Yes Genital/Urinary Problems Renal Disease: No Reproductive Problems Previous Pregnancies: Yes Musculoskeletal Problems Arthritis: Yes Endocrine Problems Diabetes Mellitus Type 1: No Diabetes Mellitus Type 2: Yes (no longer taking metformin, pt stated primary Dr took her off) Blood Problems Anemia: Yes Psychologic Problems Depression: No Anxiety: No Other Problems Hospitalization: Yes (seizure) Shingles: No Falls: No Blood Transfusions: No Blood Transfusion Reaction: No Anesthesia Reactions: No MRSA: No VRSA: No Vancomycin-Resistant Enterococci: No Chicken Pox: No Measles: No Mumps: No Cancer: No Subjective Visit Visit for: post op #2 and knee Immunization / Flu Flu Vaccine in the Last 12 Months: No Flu Vaccine Exclusion Criteria: No Exclusion Criteria History of Present Illness Chief complaint: 6 WEEK POST OP RT TKA Date of 1st surgery (if applicable): 10/19/24 Michell is a pleasant 49-year-old female with bilateral knee pain for years, right worse than left. She is doing well status post right total knee replacement. Personal History Occupation: DISABLED Red flag PMH: BMI BMI Counceling provided: Yes Pain Pain level (0-10): 0 Pain quality: electric and tingling Associated signs & symptoms: numbness Ambulatory data Ambulatory device: walker Treatments Improvement with previous injections: No Improvement with PT: No Improvement with NSAIDS: no Review of Systems Review of Systems: All systems negative unless otherwise noted in HPI.
[2024-12-06 11:19] VITALS: BP 116/82; PULSE 97; RESP 18; TEMP 36.1; O2SAT 96; BMI 36.1
--- NOTE | 2024-12-06 11:19 | ORTHONT_ITS ---
Vital signs 12/06/24 11:19 Height 1.65 m Height Method Stated Weight 98.203 kg Weight Measurement Method Patient Lift Scale BMI 36.1 BP 116/82 Blood Pressure Source Automatic Cuff Blood Pressure Location Right Upper Arm Position Sitting Respiration 18 Pulse 97 Pulse Source Monitor Temp 96.9 F Temp Source Temporal Artery Scan Pulse Oximetry (%) 96 Oxygen Delivery Method Room Air Med/Allergies Allergies & Medications Allergies No Known Allergies Allergy (Verified 12/06/24 11:19) Medication Reconciliation divalproex 500 mg tablet,delayed release (Depakote) 1,000 mg PO DAILY 11/04/22 [History Confirmed 12/06/24] diclofenac potassium 50 mg tablet 50 mg PO BID 10/21/24 [History Confirmed 12/06/24] semaglutide (weight loss) 1 mg/0.5 mL subcutaneous pen injector (Wegovy) 1 mg subcut QWEEK 10/21/24 [History Confirmed 12/06/24] aspirin 81 mg tablet,delayed release 81 mg PO BID #60 tabs 10/24/24 [Rx Confirmed 12/06/24] doxycycline hyclate 100 mg tablet 100 mg PO BID #14 tabs 10/24/24 [Rx Confirmed 12/06/24] gabapentin 300 mg capsule 300 mg PO .qhs #30 caps 10/24/24 [Rx Confirmed 12/06/24] oxycodone 5 mg tablet 5 mg PO Q6H PRN pain #28 tabs 10/24/24 [Rx Confirmed 12/06/24] sennosides 8.6 mg-docusate sodium 50 mg tablet (Senna-S) 1 tab-cap PO QDAY #30 tabs 10/24/24 [Rx Confirmed 12/06/24] acetaminophen 500 mg tablet (Acetaminophen Extra Strength) 1,000 mg (2 x 500 mg) PO Q6H PRN pain #90 tabs 11/08/24 [Rx Confirmed 12/06/24] Exam Exam Patient is in no acute distress and is cooperative with the examination today. Breathing is nonlabored. In no respiratory distress. Bilateral extremities were evaluated and demonstrates sensation intact to light touch. Palpable pedal pulses are present. No significant edema is present. Bilateral hips were examined. The patient has no pain with log roll of the hips. Internal rotation to 30 degrees and external rotation to 30 degrees is painless. Negative FADIR. The left knee was examined. The left knee is in varus alignment. Range of motion from 0-115 degrees. Knee is stable to varus and valgus as well as AP translation with <5mm. Patient has a negative McMurrays. There is no pain with patellofemoral compression and no crepitus noted. The knee is tender to palpation medially. Right knee incision is clean dry and intact. Range of motion is 0 to 100 degrees Assessment and Plan Problem List (1) Degenerative arthritis of knee, bilateral: Status: Acute Plan: Patient is a pleasant 49-year-old female with bilateral knee pain and bilateral knee arthritis. Patient is doing well status post left total knee replacement. She is doing well with PT. Will see her in 6 weeks for routine follow-up. Questionairres Past Medical History Past Medical History Have you ever been diagnosed with any of the following: Neurological Problems Seizures: No Cardiology Problems Congestive Heart Failure: No Hypertension: No Varicose Veins: Yes Respiratory Problems Chronic Obstructive Pulmonary Disease (COPD): No Smoking: No Smoking Cessation Counseling: No Smoking Exposure: No Stomache/Intestinal Problems Ulcer: No Gastroesophageal Reflux Disease: No Obesity: Yes Genital/Urinary Problems Renal Disease: No Reproductive Problems Previous Pregnancies: Yes Musculoskeletal Problems Arthritis: Yes Endocrine Problems Diabetes Mellitus Type 1: No Diabetes Mellitus Type 2: Yes (no longer taking metformin, pt stated primary Dr took her off) Blood Problems Anemia: Yes Psychologic Problems Depression: No Anxiety: No Other Problems Hospitalization: Yes (seizure) Shingles: No Falls: No Blood Transfusions: No Blood Transfusion Reaction: No Anesthesia Reactions: No MRSA: No VRSA: No Vancomycin-Resistant Enterococci: No Chicken Pox: No Measles: No Mumps: No Cancer: No Subjective Visit Visit for: follow up visit, post op #1 and knee Immunization / Flu Flu Vaccine in the Last 12 Months: No Flu Vaccine Exclusion Criteria: No Exclusion Criteria History of Present Illness Chief complaint: knee pain Michell is a pleasant 49-year-old female with bilateral knee pain for years, right worse than left. She is doing well status post right total knee replacement. Personal History Red flag PMH: none Pain Pain level (0-10): 4 Pain duration: COMES AND GOES Pain location: inside (medial) and anterior Pain quality: dull and aching Pain timing: increases with activity Associated signs & symptoms: stiffness Ambulatory data Ambulatory device: walker Walking distance (minutes): 5 Treatments Number of previous injections: 1 Improvement with previous injections: No Number of Physical Therapy sessions: 12 Improvement with PT: No Improvement with NSAIDS: no Review of Systems Review of Systems: All systems negative unless otherwise noted in HPI.
--- NOTE | 2024-12-06 11:20 | XR_ITS ---
Examination: Bilateral knees 2 views Bilateral knee left lateral knee 2 views Bilateral axial knees single view TECHNIQUE: Bilateral AP knees standing single view, bilateral PA knees standing single view flexion Standing right lateral knee left lateral knee 2 views Bilateral axial knees single view total 5 views Date and time: December 06, 2024 1126 hours INDICATIONS: Bilateral knee pain 3 years. FINDINGS: Moderate osteopenia Total right knee replacement with satisfactory alignment No patellar dislocation Advanced narrowing [id number] medial joint space left knee Advanced osteoarthritis left patellofemoral joint IMPRESSION: Advanced narrowing [id number] medial joint space left knee Advanced osteoarthritis left patellofemoral joint
== END 2024-12-06 11:23 | disposition home or self-care (01) ==
LOC: HODSRG 11:09
PROVIDERS: PCP Physician Assistant; Referring Provider Physician Assistant; Supervising Provider Orthopaedic Surgery Adult Reconstructive Orthopaedic Surgery; Visit Provider Orthopaedic Surgery Adult Reconstructive Orthopaedic Surgery
DX: M17.0 Bilateral primary osteoarthritis of knee (principal); M25.562 Pain in left knee; M25.561 Pain in right knee; E11.9 Type 2 diabetes mellitus without complications
CPT/HCPCS: 73564; 99213; G0463

== ENCOUNTER 2024-12-15 14:30 | Outpatient (RCR) | payer MEDICAID, SELFPAY ==
--- NOTE | 2024-11-28 14:59 | PT.ODAYNRPT ---
PT Outpatient Daily Note OP Daily Note Outpatient Physical Therapy Treatment Date: 11/28/24 Visit Reasons: RIGHT TKA Subjective: Pt's knee ache and is sore. Pt still has difficulty with walking. Objective: Please see flow chart for list of ther ex performed Assessment: tolerate exercises with minimal pain ; increase knee flexion AAROM post PT session Plan: Continue with PT Length of Time (minutes) of Treatment: 30 Minutes Procedure Charges Therapeutic Exercise 30 minutes: Yes
--- NOTE | 2024-12-01 15:45 | PT.ODAYNRPT ---
PT Outpatient Daily Note OP Daily Note Outpatient Physical Therapy Treatment Date: 12/01/24 Visit Reasons: RIGHT TKA Subjective: Pt's knee feels better. Pt was sore after last session. Objective: Please see flow chart for list of ther ex performed Assessment: improving with knee flexion AROM with less pain reported. Plan: Continue with PT Length of Time (minutes) of Treatment: 30 Minutes Procedure Charges Therapeutic Exercise 30 minutes: Yes
--- NOTE | 2024-12-07 14:58 | PT.ODAYNRPT ---
PT Outpatient Daily Note OP Daily Note Outpatient Physical Therapy Treatment Date: 12/07/24 Visit Reasons: RIGHT TKA Subjective: Pt's knee is better. Pt still notice her knee buckle intermittently with prolonged walking. Objective: Please see flow chart for list of her ex performed Assessment: progressing with closed chain exercises with minimal pain reported Plan: Continue with PT Length of Time (minutes) of Treatment: 30 Minutes Procedure Charges Therapeutic Exercise 30 minutes: Yes
--- NOTE | 2024-12-09 14:59 | PT.ODAYNRPT ---
PT Outpatient Daily Note OP Daily Note Outpatient Physical Therapy Treatment Date: 12/09/24 Visit Reasons: RIGHT TKA Subjective: Pt reports R knee is doing better, notices she can move her knee better. Objective: Please see flow sheet for ther ex list. Assessment: Pt instructed on GT with SPC, pt ambulated in clinic 2x with no LOB. Plan: Continue with POC. Length of Time (minutes) of Treatment: 30 Minutes Procedure Charges Therapeutic Exercise 30 minutes: Yes
--- NOTE | 2024-12-13 13:26 | PT.ODAYNRPT ---
PT Outpatient Daily Note OP Daily Note Outpatient Physical Therapy Treatment Date: 12/13/24 Visit Reasons: RIGHT TKA Subjective: pt reports R knee is doing better, still has pain but mild. Objective: Please see flow sheet for ther ex list. Assessment: ROm of R knee continues to improve. Plan: Continue with POC. Length of Time (minutes) of Treatment: 30 Minutes Procedure Charges Therapeutic Exercise 30 minutes: Yes
--- NOTE | 2024-12-15 16:05 | PT.ODAYNRPT ---
PT Outpatient Daily Note OP Daily Note Outpatient Physical Therapy Treatment Date: 12/15/24 Visit Reasons: RIGHT TKA Subjective: Pt reports R knee is doing ok, still has pain and does not feel strength is where she would like. Objective: Please see flow sheet for ther ex list. Assessment: Added TG squats exercise, pt completed assigned reps with muscle fatigue and minimal pain. Plan: Continue with pOC. Length of Time (minutes) of Treatment: 30 Minutes Procedure Charges Therapeutic Exercise 30 minutes: Yes
== END 2024-12-26 23:59 | disposition home or self-care (01) ==
LOC: CPTX 14:30
PROVIDERS: PCP Orthopaedic Surgery Adult Reconstructive Orthopaedic Surgery; Referring Provider Orthopaedic Surgery Adult Reconstructive Orthopaedic Surgery; Visit Provider Orthopaedic Surgery Adult Reconstructive Orthopaedic Surgery
DX: M25.561 Pain in right knee (principal); R53.1 Weakness; R26.2 Difficulty in walking, not elsewhere classified; Z96.651 Presence of right artificial knee joint
CPT/HCPCS: 97110

== ENCOUNTER 2025-01-25 10:00 | Outpatient (RCR) | payer MEDICAID, SELFPAY ==
--- NOTE | 2024-12-28 16:12 | PT.ODAYNRPT ---
PT Outpatient Daily Note OP Daily Note Outpatient Physical Therapy Treatment Date: 12/28/24 Visit Reasons: RT TKA Subjective: pt reports R knee is doing better, notices flexibility is improving. Objective: Please see flow sheet for ther ex list. Assessment: Held off on TG squat exercise due to pt fatigued near end of session. Plan: Continue with POC. Length of Time (minutes) of Treatment: 30 Minutes Procedure Charges Therapeutic Exercise 30 minutes: Yes
--- NOTE | 2025-01-02 16:08 | PT.ODAYNRPT ---
PT Outpatient Daily Note OP Daily Note Outpatient Physical Therapy Treatment Date: 01/02/25 Visit Reasons: RT TKA Subjective: Pt reports R knee is doing better. Objective: Please see flow sheet for ther exlist. Assessment: Focus on improving strength and normalizing gait. Plan: Continue with POC. Length of Time (minutes) of Treatment: 30 Minutes Procedure Charges Therapeutic Exercise 30 minutes: Yes
--- NOTE | 2025-01-04 16:13 | PT.ODAYNRPT ---
PT Outpatient Daily Note OP Daily Note Outpatient Physical Therapy Treatment Date: 01/04/25 Visit Reasons: RT TKA Subjective: Pt reports R knee is doing ok, no other complaints. Objective: Please see flow sheet for ther ex list. Assessment: Progressing strengthening interventions, pt tolerated well. Plan: Continue with poC. Length of Time (minutes) of Treatment: 30 Minutes Procedure Charges Therapeutic Exercise 30 minutes: Yes
--- NOTE | 2025-01-10 15:21 | PT.ODAYNRPT ---
PT Outpatient Daily Note OP Daily Note Outpatient Physical Therapy Treatment Date: 01/10/25 Visit Reasons: RT TKA Subjective: Pt reports r knee is doing better, not using cane today. Objective: Please see flow sheet for ther ex list. Assessment: Progressing interventions to work on improving R LE strength and normalize gait. Plan: Continue with poC. Length of Time (minutes) of Treatment: 30 Minutes Procedure Charges Therapeutic Exercise 30 minutes: Yes
--- NOTE | 2025-01-17 16:03 | PT.ODAYNRPT ---
PT Outpatient Daily Note OP Daily Note Outpatient Physical Therapy Treatment Date: 01/17/25 Visit Reasons: RT TKA Subjective: Pt's knee is feeling much better. Pt still has to hold her rails to go up and down her stairs. Pt also reports of less swelling lately. Objective: Right Knee AROM: -6 deg to 125 deg Assessment: Pt demonstrate significant knee flexion AROM. Pt still exhibit decrease eccentric quad control with coming down the 6 step. Minimal swelling noted around the knee and decline post ice Plan: Continue with PT Length of Time (minutes) of Treatment: 30 Minutes Procedure Charges Therapeutic Exercise 30 minutes: Yes
--- NOTE | 2025-01-20 13:35 | PT.ODAYNRPT ---
PT Outpatient Daily Note OP Daily Note Outpatient Physical Therapy Treatment Date: 01/20/25 Visit Reasons: RT TKA Subjective: Pt's knee is better. Pt mentioned she's now walking longer. Pt still has trouble with steps due to intermittent knee buckling. Objective: Please see flow chart for list of ther ex performed Assessment: patient continue to exhibit decrease eccentric control coming down the 6 step due to quad weakness. Pt's gait is improved with more noted weight bearing in stance on the right LE Plan: Continue with PT Length of Time (minutes) of Treatment: 30 Minutes Procedure Charges Therapeutic Exercise 30 minutes: Yes
--- NOTE | 2025-01-25 11:12 | PT.ODAYNRPT ---
PT Outpatient Daily Note OP Daily Note Outpatient Physical Therapy Treatment Date: 01/25/25 Visit Reasons: RT TKA Subjective: Pt's right knee is doing well. Pt mentioned since her left knee is bone on bone she's been using her right knee more with ADLs which has led to fatigue and intermittent buckling Objective: Please see flow chart for list of ther ex performed Assessment: improved eccentric control with step up exercise. Pt fatigue with side step and monster walk and require standing rest breaks between reps. Cues give to keep foot straight to engage more glute while performing exercises Plan: Continue with PT Length of Time (minutes) of Treatment: 30 Minutes Procedure Charges Therapeutic Exercise 30 minutes: Yes
== END 2025-01-26 23:59 | disposition home or self-care (01) ==
LOC: CPTX 10:00
PROVIDERS: PCP Orthopaedic Surgery Adult Reconstructive Orthopaedic Surgery; Referring Provider Orthopaedic Surgery Adult Reconstructive Orthopaedic Surgery; Visit Provider Orthopaedic Surgery Adult Reconstructive Orthopaedic Surgery
DX: M25.561 Pain in right knee (principal); R53.1 Weakness; R26.2 Difficulty in walking, not elsewhere classified; Z96.651 Presence of right artificial knee joint; M17.11 Unilateral primary osteoarthritis, right knee
CPT/HCPCS: 97110

== ENCOUNTER 2025-02-23 13:00 | Outpatient (RCR) | payer MEDICAID, SELFPAY ==
--- NOTE | 2025-01-27 10:15 | PT.ODAYNRPT ---
PT Outpatient Daily Note OP Daily Note Outpatient Physical Therapy Treatment Date: 01/27/25 Visit Reasons: RT Tka Subjective: Pt's knee is better. Pt does not have any concerns today Objective: Please see flow chart for list of ther ex Assessment: improved quad control with step up and lateral step up exercise today. Added TG squat with good tolerance Plan: Continue with PT Length of Time (minutes) of Treatment: 30 Minutes Procedure Charges Therapeutic Exercise 30 minutes: Yes
--- NOTE | 2025-01-31 10:32 | PT.ODAYNRPT ---
PT Outpatient Daily Note OP Daily Note Outpatient Physical Therapy Treatment Date: 01/31/25 Visit Reasons: RT Tka Subjective: Pt reports knee is doing better feels leg is stronger and is limping less. Objective: Please see flow sheet for ther ex list. 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 Plan: Continue with poC. Length of Time (minutes) of Treatment: 30 Minutes Procedure Charges Therapeutic Exercise 30 minutes: Yes
--- NOTE | 2025-01-31 13:34 | PT.ODAYNRPT ---
PT Outpatient Daily Note OP Daily Note Outpatient Physical Therapy Treatment Date: 01/31/25 Visit Reasons: RT Tka Subjective: Pt reports R knee is painful and stiff. Objective: Please see flow sheet for ther ex list. Assessment: Pt highly guarded during PROM limiting range, pt encouraged to work on HEP. Plan: Continue with POC. Length of Time (minutes) of Treatment: 30 Minutes Procedure Charges Therapeutic Exercise 30 minutes: Yes
--- NOTE | 2025-02-02 11:36 | PT.ODAYNRPT ---
PT Outpatient Daily Note OP Daily Note Outpatient Physical Therapy Treatment Date: 02/02/25 Visit Reasons: RT Tka Subjective: Pt reports progress with R knee, mentioened she is mostly limited due to L knee issues. Objective: Please see flow sheet for ther ex list. 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 Plan: Continue with poC. Length of Time (minutes) of Treatment: 30 Minutes Procedure Charges Therapeutic Exercise 30 minutes: Yes
--- NOTE | 2025-02-08 10:37 | PT.ODAYNRPT ---
PT Outpatient Daily Note OP Daily Note Outpatient Physical Therapy Treatment Date: 02/08/25 Visit Reasons: RT Tka Subjective: Pt reports R knee is progressing, flexibility is improving. Objective: Please see flow sheet for ther ex list. Assessment: Added resistance to lateral walking, pt completed with muscle fatigue but no pain to report. Plan: Continue with POC. Length of Time (minutes) of Treatment: 30 Minutes Procedure Charges Therapeutic Exercise 30 minutes: Yes
--- NOTE | 2025-02-10 15:54 | PT.ODAYNRPT ---
PT Outpatient Daily Note OP Daily Note Outpatient Physical Therapy Treatment Date: 02/10/25 Visit Reasons: RT Tka Subjective: no new complaints. Objective: Please see flow sheet for ther ex list. Assessment: Modified step up interventions to accommodate c/o L LE pain. Plan: Continue with POC. Length of Time (minutes) of Treatment: 30 Minutes Procedure Charges Therapeutic Exercise 30 minutes: Yes
--- NOTE | 2025-02-14 13:10 | PTNOTE_ITS ---
PT Outpatient Daily Note OP Daily Note Outpatient Physical Therapy Treatment Date: 02/14/25 Visit Reasons: RT Tka Subjective: Pt reports R knee is improving. Objective: Please see flow sheet for ther ex list. Assessment: Added step up exercise to simulate navigating stairs or curbs out in community, pt can perform with minimal DISABILITY ADVOCATE. Plan: Continue with poC. Length of Time (minutes) of Treatment: 30 Minutes Procedure Charges Therapeutic Exercise 30 minutes: Yes
--- NOTE | 2025-02-16 11:45 | PT.ODAYNRPT ---
PT Outpatient Daily Note OP Daily Note Outpatient Physical Therapy Treatment Date: 02/16/25 Visit Reasons: RT Tka Subjective: Pt reports R knee is progressing, notices she can move it more. Objective: Please see flow sheet for ther ex list. Assessment: ROM of R knee continues to improve. Plan: Continue with POC. Length of Time (minutes) of Treatment: 30 Minutes Procedure Charges Therapeutic Exercise 30 minutes: Yes
--- NOTE | 2025-02-21 14:04 | PT.ODAYNRPT ---
PT Outpatient Daily Note OP Daily Note Outpatient Physical Therapy Treatment Date: 02/21/25 Visit Reasons: RT Tka Subjective: Pt reports R knee is progressing, strength is better and so is flexibility. Objective: Please see flow sheet for ther ex list. Assessment: Pt ROM continues to progress. Plan: Continue with pOC. Length of Time (minutes) of Treatment: 30 Minutes Procedure Charges Therapeutic Exercise 30 minutes: Yes
--- NOTE | 2025-02-23 14:37 | PTNOTE_ITS ---
PT Outpatient Daily Note OP Daily Note Outpatient Physical Therapy Treatment Date: 02/23/25 Visit Reasons: RT Tka Subjective: Pt reports R knee is progressing well, notices strength has improved. Objective: Please see flow sheet for ther ex list. 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 Plan: Continue with POC. Length of Time (minutes) of Treatment: 30 Minutes Procedure Charges Therapeutic Exercise 30 minutes: Yes
== END 2025-02-26 23:59 | disposition home or self-care (01) ==
LOC: CPTX 13:00
PROVIDERS: PCP Orthopaedic Surgery Adult Reconstructive Orthopaedic Surgery; Referring Provider Orthopaedic Surgery Adult Reconstructive Orthopaedic Surgery; Visit Provider Orthopaedic Surgery Adult Reconstructive Orthopaedic Surgery
DX: M25.561 Pain in right knee (principal); R53.1 Weakness; R26.2 Difficulty in walking, not elsewhere classified; Z96.651 Presence of right artificial knee joint; M17.11 Unilateral primary osteoarthritis, right knee
CPT/HCPCS: 97110

== ENCOUNTER 2025-02-28 13:57 | Outpatient (RCR) | payer MEDICAID, SELFPAY ==
--- NOTE | 2025-02-28 16:12 | PT.ODS1RPT ---
PT OP Progress/Discharge Note Date of Service: 02/28/25 Progress Note/DC Note Progress Note/Discharge Note: DC Note Patient Information Visit Reasons: Rt TKA Medical Diagnosis: Right Knee OA Treatment Dx #1: Right Knee Mobility Deficits Service Discharge Date: 02/28/25 Status Subjective: Pt's knee feels much better and will like to discontinue physical therapy. Pt has been able to walk, stand, perform chores, and ADLs. Objective: Right Knee AROM: -8 deg to 125 deg Right Knee MMTs: grossly 4/5 Right Hip MMTs: grossly 4-/5 SLS: 20 sec Assessment: Pt demonstrate functional right knee mobility and strength allowing her to resume ADLs, ambulate, and perform recreational activities with minimal limitation. Pt will no longer benefit from physical therapy due to meeting set goals in therapy. Pt was instructed on HEP last session and educated to continue exercises to maintain overall mobility. Pt performed all exercises safely, thank you for your referrals. Plan: D/C home with HEP and follow up with MD [facility] Procedure Charges Therapeutic Exercise 30 minutes: Yes
== END 2025-03-28 23:59 | disposition home or self-care (01) ==
LOC: CPTX 13:57
PROVIDERS: PCP Orthopaedic Surgery Adult Reconstructive Orthopaedic Surgery; Referring Provider Orthopaedic Surgery Adult Reconstructive Orthopaedic Surgery; Visit Provider Orthopaedic Surgery Adult Reconstructive Orthopaedic Surgery
DX: M25.561 Pain in right knee (principal); R53.1 Weakness; R26.2 Difficulty in walking, not elsewhere classified; Z47.1 Aftercare following joint replacement surgery; Z96.651 Presence of right artificial knee joint
CPT/HCPCS: 97110

== ENCOUNTER → 2025-03-01 | Outpatient (CLI) | payer MEDICAID, SELFPAY ==
--- NOTE | 2025-03-01 | XR_ITS ---
Examination: Diagnostic digital mammography, unilateral, right Computer aided detection 3-D breast Tomosynthesis, unilateral Date and time of exam: March 01, 2025 0920 hours INDICATIONS: Mammogram August 04, 2024 stable nodule upper outer right breast Technique: Nonmagnified MLO, CC views of the right breast have been obtained, reconstructed from 3-D Tomosynthesis images. R2 computer aided detection program utilized for evaluation of suspicious masses and/or abnormal calcifications. 3-D Tomosynthesis images obtained. Findings: Scattered areas of fibroglandular density. Breast biopsy marker retroareolar right vision right breast with scar formation Nodules again noted outer right breast, more anteriorly 10 mm more posteriorly 4 mm, upper right breast on the MLO view, the 10 mm nodule corresponds to the 10 mm nodule described on the right breast sonogram today Impression: BI-RADS category 3: Probably benign findings Follow-up right mammogram in 6 months and right breast sonogram in 6 months strongly recommended
--- NOTE | 2025-03-01 08:30 | XR_ITS ---
Examination: Breast ultrasound, unilateral, right complete Date and time of exam: March 01, 2025 0907 hours INDICATIONS: Right breast sonogram August 04, 2024 10:00 nodule 9 mm Technique: Real-time lopez scale ultrasonographic imaging performed right breast including all 4 quadrants as well as nipple retroareolar and axillary region. Findings: 10:00 nodule lobular margins 9 x 8 mm Benign cysts Right axillary lymph node 5.1 cm IMPRESSION: BI-RADS Category 3: Probably benign findings One additional 6 month right breast sonogram follow-up is needed to document stability of enlarged right axillary lymph node
== END | disposition home or self-care (01) ==
PROVIDERS: PCP Physician Assistant; Referring Provider Physician Assistant; Visit Provider Physician Assistant
DX: R92.331 Mammographic heterogeneous density, right breast (principal); R59.0 Localized enlarged lymph nodes
CPT/HCPCS: 76641; 77061; 77065; G0279

== ENCOUNTER 2025-03-07 10:39 | Outpatient (AMB) | payer MEDICAID, SELFPAY ==
--- NOTE | 2025-03-07 10:50 | PD.ORTHCLVIS ---
Vital signs 03/07/25 10:51 Height 1.65 m Height Method Measured Weight 99.592 kg Weight Measurement Method Standing Scale BMI 36.6 BP 115/83 Blood Pressure Source Automatic Cuff Blood Pressure Location Left Upper Arm Position Sitting Respiration 18 Pulse 82 Pulse Source Monitor Temp 97.3 F Temp Source Temporal Artery Scan Pulse Oximetry (%) 97 Oxygen Delivery Method Room Air Med/Allergies Allergies & Medications Allergies No Known Allergies Allergy (Verified 03/07/25 10:52) Medication Reconciliation divalproex 500 mg tablet,delayed release (Depakote) 1,000 mg PO DAILY 11/04/22 [History Confirmed 03/07/25] diclofenac potassium 50 mg tablet 50 mg PO BID 10/21/24 [History Confirmed 03/07/25] semaglutide (weight loss) 1 mg/0.5 mL subcutaneous pen injector (Wegovy) 1 mg subcut QWEEK 10/21/24 [History Confirmed 03/07/25] aspirin 81 mg tablet,delayed release 81 mg PO BID #60 tabs 10/24/24 [Rx Confirmed 03/07/25] doxycycline hyclate 100 mg tablet 100 mg PO BID #14 tabs 10/24/24 [Rx Confirmed 03/07/25] gabapentin 300 mg capsule 300 mg PO .qhs #30 caps 10/24/24 [Rx Confirmed 03/07/25] oxycodone 5 mg tablet 5 mg PO Q6H PRN pain #28 tabs 10/24/24 [Rx Confirmed 03/07/25] sennosides 8.6 mg-docusate sodium 50 mg tablet (Senna-S) 1 tab-cap PO QDAY #30 tabs 10/24/24 [Rx Confirmed 03/07/25] acetaminophen 500 mg tablet (Acetaminophen Extra Strength) 1,000 mg (2 x 500 mg) PO Q6H PRN pain #90 tabs 11/08/24 [Rx Confirmed 03/07/25] Exam Exam Patient is in no acute distress and is cooperative with the examination today. Breathing is nonlabored. In no respiratory distress. Bilateral extremities were evaluated and demonstrates sensation intact to light touch. Palpable pedal pulses are present. No significant edema is present. Bilateral hips were examined. The patient has no pain with log roll of the hips. Internal rotation to 30 degrees and external rotation to 30 degrees is painless. Negative FADIR. The left knee was examined. The left knee is in varus alignment. Range of motion from 0-115 degrees. Knee is stable to varus and valgus as well as AP translation with <5mm. Patient has a negative McMurrays. There is pain with patellofemoral compression and no crepitus noted. The knee is tender to palpation medially. Right knee incision is clean dry and intact. Range of motion is 0 to 100 degrees Right knee x-rays demonstrates a cementless total knee replacement in alignment position. There is complete obliteration of the medial joint space on the left with varus deformity and osteophyte Assessment and Plan Problem List (1) Degenerative arthritis of knee, bilateral: Status: Acute Plan: Patient is a pleasant 50-year-old female with bilateral knee pain and bilateral knee arthritis. Patient is doing well status post right total knee replacement. She is doing well but the left knee is limiting her. She has failed conservative treatment including formal physical therapy as well as anti-inflammatories and 1 injection which did not work The nature and purpose of the total knee replacement, alternative method(s) of treatment, the material risks involved, and the possibility of complications were fully explained to the patient. The patient does NOT have any of the following contraindications to TKA: - Active infection of the knee joint, OR - Active systemic bacteremia, OR - Active skin infection or open wound at surgical site, OR - Neuropathic arthritis, OR - Severe, rapidly progressive neurological disease, OR - Severe medical condition that makes risks of surgery outweigh the potential benefit The patient was told the most common risks and complications associated with a total knee replacement include, but are not limited to: blood clots in the leg, fatal pulmonary embolism, dislocation of the prosthesis, intraoperative and postoperative fractures of the femur or tibia, infection, failure of the prosthesis or grafting materials, complications from anesthesia, reactions to blood transfusions, postoperative leg length inequality, instability of the knee replacement, nerve damage or injury, vascular injury, delayed wound healing, infection, other injury or even . In addition, there are risks associated with anesthesia given during this operation. Also, the patient was told that after undergoing a total knee replacement there may still be persistent pain or disability. The patient was informed that the success of this operation in part depends upon the mechanical devices which are going to be implanted and that these devices can fail or malfunction, and may need to be repaired or replaced and there are no guarantees as to the longevity of this device or its parts and that it or its parts could fail prematurely. The patient was also notified that during the course of surgery, there may be a need to use bone graft from donors, and that any bone graft used will be carefully screened for communicable diseases, including AIDS, hepatitis, Guy-Creutzfeldt, or other diseases, but despite the screening procedures, there is a small chance that they could contract one of these diseases. Finally, the patient was asked to follow completely and fully with all advice and recommended treatments, and that recovery and ultimate outcome are affected by their compliance with recommended treatment. We discussed the risks, benefits and treatment alternatives, and the patient is interested in proceeding with surgery. We will try to set this up as expeditiously as possible. Office Procedures GNS Level of Care Nursing/Assessment Patient Status: Established Patient Nursing Assessment/Reassesment: Medication Reconciliation, Orthostatic Vitals, Update PMH in EMR and Vital Signs Coordination of Care: Complex Care and Chronic Disease 1-5, Education Complex Pt/Fam, Consent,records obtained, informed consent, Results/Orders obtained and Staff clarify orders Special Needs: Language special needs Established Patient Charge Established Patient Point Assignment: 105 Established Patient Point Charge: EP Level 3 (80-115) MA Intake Visit Data Collection New Patient or Established: Established Patient (seen at [facility] within 3 years) Reason for Visit:: 3 MONTH F/U TKA Seen by Clinical Staff ONLY (RN/MA): No 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 PCP or OBGYN visit in last 3 months: Yes Hx Now: No Do You Feel Safe at Home: Yes Authorities Contacted: N/A Questionairres Past Medical History Past Medical History Have you ever been diagnosed with any of the following: Neurological Problems Seizures: No Cardiology Problems Congestive Heart Failure: No Hypertension: No Varicose Veins: Yes Respiratory Problems Chronic Obstructive Pulmonary Disease (COPD): No Smoking: No Smoking Cessation Counseling: No Smoking Exposure: No Stomache/Intestinal Problems Ulcer: No Gastroesophageal Reflux Disease: No Obesity: Yes Genital/Urinary Problems Renal Disease: No Reproductive Problems Previous Pregnancies: Yes Musculoskeletal Problems Arthritis: Yes Endocrine Problems Diabetes Mellitus Type 1: No Diabetes Mellitus Type 2: Yes (no longer taking metformin, pt stated primary Dr took her off) Blood Problems Anemia: Yes Psychologic Problems Depression: No Anxiety: No Other Problems Hospitalization: Yes (seizure) Shingles: No Falls: No Blood Transfusions: No Blood Transfusion Reaction: No Anesthesia Reactions: No MRSA: No VRSA: No Vancomycin-Resistant Enterococci: No Chicken Pox: No Measles: No Mumps: No Cancer: No Subjective Visit Visit for: follow up visit, post op #1 and knee Immunization / Flu Flu Vaccine in the Last 12 Months: Yes Flu Vaccine Exclusion Criteria: No Exclusion Criteria and Already Received History of Present Illness Chief complaint: 3 MONTH F/U TKA Michell is a pleasant 49-year-old female with bilateral knee pain for year.. She is doing well status post right total knee replacement. The left knee pain is now affecting her quality life and happiness. She has tried NSAIDs, and physical therapy. She has tried injections but only received a day of relief. Personal History Red flag PMH: none BMI Counceling provided: Yes Pain Pain level (0-10): 0 Pain duration: COMES AND GOES Pain location: inside (medial) and anterior Pain quality: dull and aching Pain timing: increases with activity Associated signs & symptoms: stiffness Ambulatory data Ambulatory device: walker and none Walking distance (minutes): 5 Treatments Number of previous injections: 1 Improvement with previous injections: No Number of Physical Therapy sessions: 12 Improvement with PT: No Improvement with NSAIDS: no Review of Systems Review of Systems: All systems negative unless otherwise noted in HPI.
[2025-03-07 10:51] VITALS: BP 115/83; PULSE 82; RESP 18; TEMP 36.3; O2SAT 97; BMI 36.6
== END 2025-03-07 11:05 | disposition home or self-care (01) ==
LOC: HODSRG 10:39
PROVIDERS: PCP Physician Assistant; Referring Provider Physician Assistant; Supervising Provider Orthopaedic Surgery Adult Reconstructive Orthopaedic Surgery; Visit Provider Orthopaedic Surgery Adult Reconstructive Orthopaedic Surgery
DX: M17.0 Bilateral primary osteoarthritis of knee (principal); M25.562 Pain in left knee; M25.561 Pain in right knee; Z96.651 Presence of right artificial knee joint; E11.9 Type 2 diabetes mellitus without complications; E66.9 Obesity, unspecified; Z71.3 Dietary counseling and surveillance; Z68.36 Body mass index [BMI] 36.0-36.9, adult
CPT/HCPCS: 99213; G0463

== ENCOUNTER 2025-03-16 10:27 | Outpatient (AMB) | payer MEDICAID, SELFPAY ==
--- NOTE | 2025-03-16 10:55 | ORTHONT_ITS ---
Vital signs 03/16/25 10:57 Height 1.65 m Height Method Stated Weight 99.535 kg Weight Measurement Method Standing Scale BMI 36.6 BP 114/79 Blood Pressure Source Automatic Cuff Blood Pressure Location Left Upper Arm Position Sitting Respiration 18 Pulse 80 Pulse Source Monitor Temp 97.1 F Temp Source Temporal Artery Scan Pulse Oximetry (%) 98 Oxygen Delivery Method Room Air Med/Allergies Allergies & Medications Allergies No Known Allergies Allergy (Verified 03/16/25 10:57) Medication Reconciliation divalproex 500 mg tablet,delayed release (Depakote) 1,000 mg PO DAILY 11/04/22 [History Confirmed 03/16/25] diclofenac potassium 50 mg tablet 50 mg PO BID 10/21/24 [History Confirmed 03/16/25] semaglutide (weight loss) 1 mg/0.5 mL subcutaneous pen injector (Wegovy) 1 mg subcut QWEEK 10/21/24 [History Confirmed 03/16/25] aspirin 81 mg tablet,delayed release 81 mg PO BID #60 tabs 10/24/24 [Rx Confirmed 03/16/25] doxycycline hyclate 100 mg tablet 100 mg PO BID #14 tabs 10/24/24 [Rx Confirmed 03/16/25] gabapentin 300 mg capsule 300 mg PO .qhs #30 caps 10/24/24 [Rx Confirmed 03/16/25] oxycodone 5 mg tablet 5 mg PO Q6H PRN pain #28 tabs 10/24/24 [Rx Confirmed 03/16/25] sennosides 8.6 mg-docusate sodium 50 mg tablet (Senna-S) 1 tab-cap PO QDAY #30 tabs 10/24/24 [Rx Confirmed 03/16/25] acetaminophen 500 mg tablet (Acetaminophen Extra Strength) 1,000 mg (2 x 500 mg) PO Q6H PRN pain #90 tabs 11/08/24 [Rx Confirmed 03/16/25] Exam Exam Patient is in no acute distress and is cooperative with the examination today. Breathing is nonlabored. In no respiratory distress. Bilateral extremities were evaluated and demonstrates sensation intact to light touch. Palpable pedal pulses are present. No significant edema is present. Bilateral hips were examined. The patient has no pain with log roll of the hips. Internal rotation to 30 degrees and external rotation to 30 degrees is painless. Negative FADIR. The left knee was examined. The left knee is in varus alignment. Range of motion from 0-115 degrees. Knee is stable to varus and valgus as well as AP translation with <5mm. Patient has a negative McMurrays. There is pain with patellofemoral compression and no crepitus noted. The knee is tender to palpation medially. Right knee incision is clean dry and intact. Range of motion is 0 to 100 degrees Right knee x-rays demonstrates a cementless total knee replacement in alignment position. There is complete obliteration of the medial joint space on the left with varus deformity and osteophytes. Assessment and Plan Problem List (1) Degenerative arthritis of knee, bilateral: Status: Acute Plan: Patient is a pleasant 50-year-old female with bilateral knee pain and bilateral knee arthritis s/p R TKA. She is doing well but the left knee is limiting her. She has failed conservative treatment including formal physical therapy as well as anti-inflammatories which did not work. She has tried to lose weight including Wegovy and zepbound. She has lost a total of 30 pounds in preparation for surgery. The nature and purpose of the total knee replacement, alternative method(s) of treatment, the material risks involved, and the possibility of complications were fully explained to the patient. The patient does NOT have any of the following contraindications to TKA: - Active infection of the knee joint, OR - Active systemic bacteremia, OR - Active skin infection or open wound at surgical site, OR - Neuropathic arthritis, OR - Severe, rapidly progressive neurological disease, OR - Severe medical condition that makes risks of surgery outweigh the potential benefit The patient was told the most common risks and complications associated with a total knee replacement include, but are not limited to: blood clots in the leg, fatal pulmonary embolism, dislocation of the prosthesis, intraoperative and postoperative fractures of the femur or tibia, infection, failure of the prosthesis or grafting materials, complications from anesthesia, reactions to blood transfusions, postoperative leg length inequality, instability of the knee replacement, nerve damage or injury, vascular injury, delayed wound healing, infection, other injury or even . In addition, there are risks associated with anesthesia given during this operation. Also, the patient was told that after undergoing a total knee replacement there may still be persistent pain or disability. The patient was informed that the success of this operation in part depends upon the mechanical devices which are going to be implanted and that these devices can fail or malfunction, and may need to be repaired or replaced and there are no guarantees as to the longevity of this device or its parts and that it or its parts could fail prematurely. The patient was also notified that during the course of surgery, there may be a need to use bone graft from donors, and that any bone graft used will be carefully screened for communicable diseases, including AIDS, hepatitis, Jose ob-Creutzfeldt, or other diseases, but despite the screening procedures, there is a small chance that they could contract one of these diseases. Finally, the patient was asked to follow completely and fully with all advice and recommended treatments, and that recovery and ultimate outcome are affected by their compliance with recommended treatment. We discussed the risks, benefits and treatment alternatives, and the patient is interested in proceeding with surgery. We will try to set this up as expeditiously as possible. Office Procedures GNS Level of Care Nursing/Assessment Patient Status: Established Patient Nursing Assessment/Reassesment: Medication Reconciliation, Update PMH in EMR and Vital Signs Coordination of Care: Complex Care and Chronic Disease 1-5, Education Complex Pt/Fam, Consent,records obtained, informed consent, Results/Orders obtained and Staff clarify orders Established Patient Charge Established Patient Point Assignment: 95 Established Patient Point Charge: EP Level 3 (80-115) MA Intake Visit Data Collection New Patient or Established: Established Patient (seen at [facility] within 3 years) Reason for Visit:: 3 MONTH F/U TKA Seen by Clinical Staff ONLY (RN/MA): No 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 PCP or OBGYN visit in last 3 months: Yes Hx Now: No Do You Feel Safe at Home: Yes Authorities Contacted: N/A Questionairres Past Medical History Past Medical History Have you ever been diagnosed with any of the following: Neurological Problems Seizures: No Cardiology Problems Congestive Heart Failure: No Hypertension: No Varicose Veins: Yes Respiratory Problems Chronic Obstructive Pulmonary Disease (COPD): No Smoking: No Smoking Cessation Counseling: No Smoking Exposure: No Stomache/Intestinal Problems Ulcer: No Gastroesophageal Reflux Disease: No Obesity: Yes Genital/Urinary Problems Renal Disease: No Reproductive Problems Previous Pregnancies: Yes Musculoskeletal Problems Arthritis: Yes Endocrine Problems Diabetes Mellitus Type 1: No Diabetes Mellitus Type 2: Yes (no longer taking metformin, pt stated primary Dr took her off) Blood Problems Anemia: Yes Psychologic Problems Depression: No Anxiety: No Other Problems Hospitalization: Yes (seizure) Shingles: No Falls: No Blood Transfusions: No Blood Transfusion Reaction: No Anesthesia Reactions: No MRSA: No VRSA: No Vancomycin-Resistant Enterococci: No Chicken Pox: No Measles: No Mumps: No Cancer: No Subjective Visit Visit for: follow up visit and knee Immunization / Flu Flu Vaccine in the Last 12 Months: Yes Flu Vaccine Exclusion Criteria: No Exclusion Criteria and Already Received History of Present Illness Chief complaint: 3 MONTH F/U TKA Michell is a pleasant 49-year-old female with bilateral knee pain for year.. She is doing well status post right total knee replacement. The left knee pain is now affecting her quality life and happiness. The left knee pain has been ongoing for 3 years. She has tried NSAIDs, and physical therapy (24 sessions) for the left knee. We clarified her injection history and she is not sure if she has had an injection in the left knee. She certainly had multiple injections on the right Personal History Red flag PMH: none BMI Counceling provided: Yes Pain Pain level (0-10): 9 Pain duration: COMES AND GOES Pain location: anterior Pain quality: sharp and burning Ambulatory data Ambulatory device: walker and none Walking distance (minutes): 5 Treatments Number of previous injections: 1 Improvement with previous injections: No Number of Physical Therapy sessions: 12 Improvement with PT: No Improvement with NSAIDS: no Review of Systems Review of Systems: All systems negative unless otherwise noted in HPI.
[2025-03-16 10:57] VITALS: BP 114/79; PULSE 80; RESP 18; TEMP 36.2; O2SAT 98; BMI 36.6
== END 2025-03-16 11:04 | disposition home or self-care (01) ==
PROVIDERS: PCP Physician Assistant; Referring Provider Physician Assistant; Supervising Provider Orthopaedic Surgery Adult Reconstructive Orthopaedic Surgery; Visit Provider Orthopaedic Surgery Adult Reconstructive Orthopaedic Surgery
DX: M17.0 Bilateral primary osteoarthritis of knee (principal); M25.562 Pain in left knee; M25.561 Pain in right knee; Z96.651 Presence of right artificial knee joint; E11.9 Type 2 diabetes mellitus without complications; E66.9 Obesity, unspecified; Z71.3 Dietary counseling and surveillance; Z68.36 Body mass index [BMI] 36.0-36.9, adult
CPT/HCPCS: 99213; G0463

== ENCOUNTER → 2025-03-21 | Outpatient (CLI) | payer MEDICAID, SELFPAY ==
[2025-03-20 16:17] LABS: HCG Qualitative,Urine Negative
--- NOTE | 2025-03-21 12:00 | XR_ITS ---
Examination: CT left lower extremity, without contrast. 2-D sagittal reconstructions. 2-D coronal reconstructions. 3-D reconstructions. Date and time of exam:March 21, 2025 1227 hours INDICATIONS: Diagnosis primary unilateral osteoarthritis left knee, left knee pain 3 years CTDI: vol (mGy):14.1 DLP: (mGycm):1013 Technique: Multiple 1.25 mm axial sections of the left lower extremity without intravenous contrast have been obtained. 2-D sagittal and coronal reconstructions have been obtained. 3-D reconstructions have been obtained. Low dose protocols were performed. One or more of the following dose reduction techniques were used; automated exposure control, adjustment of the mA and/or KV according to patient size, use of iterative reconstruction technique. Findings: Mild osteopenia Mild to moderate narrowing left hip joint, no left hip fracture or dislocation Moderate to advanced narrowing medial joint space left knee Moderate osteoarthritis lateral patellofemoral joints No fractures or avascular necrosis IMPRESSION: Moderate to advanced narrowing medial joint space left knee Moderate osteoarthritis lateral patellofemoral joints
== END | disposition home or self-care (01) ==
PROVIDERS: PCP Physician Assistant; Referring Provider Orthopaedic Surgery Adult Reconstructive Orthopaedic Surgery; Visit Provider Orthopaedic Surgery Adult Reconstructive Orthopaedic Surgery
DX: M17.12 Unilateral primary osteoarthritis, left knee (principal); M25.862 Other specified joint disorders, left knee; Z32.00 Encounter for pregnancy test, result unknown
CPT/HCPCS: 73700; 81025

== ENCOUNTER 2025-03-30 14:40 | Outpatient (AMB) | payer MEDICAID, SELFPAY ==
[2025-03-30 14:57] VITALS: BP 121/78; PULSE 81; RESP 18; TEMP 36.3; O2SAT 96; BMI 36.8
--- NOTE | 2025-03-30 14:57 | ORTHONT_ITS ---
Vital signs 03/30/25 14:57 Height 1.65 m Height Method Stated Weight 100.272 kg Weight Measurement Method Standing Scale BMI 36.8 BP 121/78 Blood Pressure Source Automatic Cuff Blood Pressure Location Left Upper Arm Position Sitting Respiration 18 Pulse 81 Pulse Source Monitor Temp 97.4 F Temp Source Temporal Artery Scan Pulse Oximetry (%) 96 Oxygen Delivery Method Room Air Med/Allergies Allergies & Medications Allergies No Known Allergies Allergy (Verified 03/30/25 14:58) Medication Reconciliation divalproex 500 mg tablet,delayed release (Depakote) 1,000 mg PO DAILY 11/04/22 [History Confirmed 03/30/25] diclofenac potassium 50 mg tablet 50 mg PO BID 10/21/24 [History Confirmed 03/30/25] semaglutide (weight loss) 1 mg/0.5 mL subcutaneous pen injector (Wegovy) 1 mg subcut QWEEK 10/21/24 [History Confirmed 03/30/25] aspirin 81 mg tablet,delayed release 81 mg PO BID #60 tabs 10/24/24 [Rx Confirmed 03/30/25] doxycycline hyclate 100 mg tablet 100 mg PO BID #14 tabs 10/24/24 [Rx Confirmed 03/30/25] gabapentin 300 mg capsule 300 mg PO .qhs #30 caps 10/24/24 [Rx Confirmed 03/30/25] oxycodone 5 mg tablet 5 mg PO Q6H PRN pain #28 tabs 10/24/24 [Rx Confirmed 03/30/25] sennosides 8.6 mg-docusate sodium 50 mg tablet (Senna-S) 1 tab-cap PO QDAY #30 tabs 10/24/24 [Rx Confirmed 03/30/25] acetaminophen 500 mg tablet (Acetaminophen Extra Strength) 1,000 mg (2 x 500 mg) PO Q6H PRN pain #90 tabs 11/08/24 [Rx Confirmed 03/30/25] Exam Exam Patient is in no acute distress and is cooperative with the examination today. Breathing is nonlabored. In no respiratory distress. Bilateral extremities were evaluated and demonstrates sensation intact to light touch. Palpable pedal pulses are present. No significant edema is present. Bilateral hips were examined. The patient has no pain with log roll of the hips. Internal rotation to 30 degrees and external rotation to 30 degrees is painless. Negative FADIR. The left knee was examined. The left knee is in varus alignment. Range of motion from 0-115 degrees. Knee is stable to varus and valgus as well as AP translation with <5mm. Patient has a negative McMurrays. There is pain with patellofemoral compression and no crepitus noted. The knee is tender to palpation medially. Right knee incision is clean dry and intact. Range of motion is 0 to 100 degrees Right knee x-rays demonstrates a cementless total knee replacement in alignment position. There is complete obliteration of the medial joint space on the left with varus deformity and osteophytes. Assessment and Plan Problem List (1) Degenerative arthritis of knee, bilateral: Status: Acute Plan: Patient is a pleasant 50-year-old female with bilateral knee pain and bilateral knee arthritis s/p R TKA. She is doing well but the left knee is limiting her. She has failed conservative treatment including formal physical therapy as well as anti-inflammatories which did not work. She has tried to lose weight including Wegovy and zepbound. She has lost a total of 30 pounds in preparation for surgery. The nature and purpose of the total knee replacement, alternative method(s) of treatment, the material risks involved, and the possibility of complications were fully explained to the patient. The patient does NOT have any of the following contraindications to TKA: - Active infection of the knee joint, OR - Active systemic bacteremia, OR - Active skin infection or open wound at surgical site, OR - Neuropathic arthritis, OR - Severe, rapidly progressive neurological disease, OR - Severe medical condition that makes risks of surgery outweigh the potential benefit The patient was told the most common risks and complications associated with a total knee replacement include, but are not limited to: blood clots in the leg, fatal pulmonary embolism, dislocation of the prosthesis, intraoperative and postoperative fractures of the femur or tibia, infection, failure of the prosthesis or grafting materials, complications from anesthesia, reactions to blood transfusions, postoperative leg length inequality, instability of the knee replacement, nerve damage or injury, vascular injury, delayed wound healing, infection, other injury or even . In addition, there are risks associated with anesthesia given during this operation. Also, the patient was told that after undergoing a total knee replacement there may still be persistent pain or disability. The patient was informed that the success of this operation in part depends upon the mechanical devices which are going to be implanted and that these devices can fail or malfunction, and may need to be repaired or replaced and there are no guarantees as to the longevity of this device or its parts and that it or its parts could fail prematurely. The patient was also notified that during the course of surgery, there may be a need to use bone graft from donors, and that any bone graft used will be carefully screened for communicable diseases, including AIDS, hepatitis, Ja kob-Creutzfeldt, or other diseases, but despite the screening procedures, there is a small chance that they could contract one of these diseases. Finally, the patient was asked to follow completely and fully with all advice and recommended treatments, and that recovery and ultimate outcome are affected by their compliance with recommended treatment. We discussed the risks, benefits and treatment alternatives, and the patient is interested in proceeding with surgery. We will try to set this up as expeditiously as possible. Office Procedures GNS Level of Care Nursing/Assessment Patient Status: Established Patient Nursing Assessment/Reassesment: Medication Reconciliation, Update PMH in EMR and Vital Signs Coordination of Care: Complex Care and Chronic Disease 1-5, Education Complex Pt/Fam, Consent,records obtained, informed consent, Results/Orders obtained and Staff clarify orders Established Patient Charge Established Patient Point Assignment: 95 Established Patient Point Charge: EP Level 3 (80-115) MA Intake Visit Data Collection New Patient or Established: Established Patient (seen at [facility] within 3 years) Reason for Visit:: PRE OP L TKA Seen by Clinical Staff ONLY (RN/MA): No Single Pass 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 Required: Yes PCP or OBGYN visit in last 3 months: Yes Hx Now: No Do You Feel Safe at Home: Yes Authorities Contacted: N/A Questionairres Past Medical History Past Medical History Have you ever been diagnosed with any of the following: Neurological Problems Seizures: No Cardiology Problems Congestive Heart Failure: No Hypertension: No Varicose Veins: Yes Respiratory Problems Chronic Obstructive Pulmonary Disease (COPD): No Smoking: No Smoking Cessation Counseling: No Smoking Exposure: No Stomache/Intestinal Problems Ulcer: No Gastroesophageal Reflux Disease: No Obesity: Yes Genital/Urinary Problems Renal Disease: No Reproductive Problems Previous Pregnancies: Yes Musculoskeletal Problems Arthritis: Yes Endocrine Problems Diabetes Mellitus Type 1: No Diabetes Mellitus Type 2: Yes (no longer taking metformin, pt stated primary Dr took her off) Blood Problems Anemia: Yes Psychologic Problems Depression: No Anxiety: No Other Problems Hospitalization: Yes (seizure) Shingles: No Falls: No Blood Transfusions: No Blood Transfusion Reaction: No Anesthesia Reactions: No MRSA: No VRSA: No Vancomycin-Resistant Enterococci: No Chicken Pox: No Measles: No Mumps: No Cancer: No Subjective Visit Visit for: follow up visit and knee Immunization / Flu Flu Vaccine in the Last 12 Months: Yes Flu Vaccine Exclusion Criteria: No Exclusion Criteria and Already Received History of Present Illness Chief complaint: 3 MONTH F/U TKA Michell is a pleasant 49-year-old female with bilateral knee pain for year.. She is doing well status post right total knee replacement. The left knee pain is now affecting her quality life and happiness. The left knee pain has been ongoing for 3 years. She has tried NSAIDs, and physical therapy (24 sessions) for the left knee. Personal History Red flag PMH: none BMI Counceling provided: Yes Pain Pain level (0-10): 9 Pain duration: COMES AND GOES Pain location: anterior Pain quality: sharp and burning Ambulatory data Ambulatory device: walker and none Walking distance (minutes): 5 Treatments Number of previous injections: 1 Improvement with previous injections: No Number of Physical Therapy sessions: 12 Improvement with PT: No Improvement with NSAIDS: no Review of Systems Review of Systems: All systems negative unless otherwise noted in HPI.
== END 2025-03-30 15:07 | disposition home or self-care (01) ==
PROVIDERS: PCP Physician Assistant; Referring Provider Physician Assistant; Supervising Provider Orthopaedic Surgery Adult Reconstructive Orthopaedic Surgery; Visit Provider Orthopaedic Surgery Adult Reconstructive Orthopaedic Surgery
DX: Z47.1 Aftercare following joint replacement surgery (principal); Z96.651 Presence of right artificial knee joint; M25.562 Pain in left knee; E66.9 Obesity, unspecified; Z68.36 Body mass index [BMI] 36.0-36.9, adult
CPT/HCPCS: 99213; G0463

== ENCOUNTER 2025-05-08 05:30 | Day surgery (SDC) | payer MEDICAID, SELFPAY ==
[2025-05-03 07:14] VITALS: BMI 37.9
[2025-05-03 08:58] LABS: Basophils # (Auto) 0.0 Thou/mm3 (0.0-0.2); Basophils % (Auto) 0 % (0-2.5); Eosinophils # (Auto) 0.1 Thou/mm3 (0.0-0.5); Eosinophils % (Auto) 1 % (0-10); Hematocrit 36.9 % (36.0-46.0); Hemoglobin 11.7 g/dL (12.0-16.0); Immature Granulocytes Auto 0.05 Thou/mm3 (0.00-0.00); Lymphocytes # (Auto) 2.8 Thou/mm3 (1.0-4.8); Lymphocytes % (Auto) 34 % (10-50); Mean Corpuscular HGB Conc 31.7 g/dl (31.0-37.0); Mean Corpuscular Hemoglobin 25.9 pg (25.0-35.0); Mean Corpuscular Volume 82 fL (80-100); Monocytes # (Auto) 0.7 Thou/mm3 (0.0-0.8); Monocytes % (Auto) 9 % (0-12); Neutrophils # (Auto) 4.4 Thou/mm3 (1.8-7.7); Neutrophils % (Auto) 55 % (37-80); Nucleated Red Blood Cell # 0.00 Thou/mm3 (0.00-0.00); Nucleated Red Blood Cell % 0 /100 WBC (0); Platelet Count 385 Thou/mm3 (140-440); RDW Standard Deviation 39.8 fL (36.4-46.3); Red Blood Count 4.52 Miln/mm3 (4.00-5.20); White Blood Count 8.1 Thou/mm3 (3.6-11.0)
[2025-05-03 09:01] LABS: INR 1.0 (0.9-1.3); Partial Thromboplastin Time 27.1 Seconds (22.0-36.0); Prothrombin Time 10.2 Seconds (9.0-12.2)
[2025-05-03 09:03] LABS: Alanine Aminotransferase 30 U/L (10-49); Albumin, Serum 4.1 gm/dL (3.5-5.0); Albumin/Globulin Ratio 1.4 (1.2-2.2); Alkaline Phosphatase 88 U/L (46-116); Anion Gap 10 (7-16); Aspartate Amino Transferase 37 U/L (0-34); BUN/Creatinine Ratio 11 Ratio (12-20); Bilirubin,Total 0.2 mg/dL (0.3-1.2); Blood Urea Nitrogen 8 mg/dL (9-23); Calcium 8.6 mg/dL (8.3-10.6); Calcium (Corrected) 8.6 mg/dL (8.5-10.1); Carbon Dioxide 22.3 mMol/L (20.0-31.0); Chloride 106 mMol/L (98-107); Creatinine (Component) 0.7 mg/dL (0.6-1.3); Estimated Creatinine Clearance 111.9 mL/min (>60); Globulin 2.9 gm/dL (2.3-3.5); Glucose 106 mg/dL (74-106); HCG,Qualitative Serum Negative; Osmolality,Calculated 273 (275-295); Potassium 4.3 mMol/L (3.4-5.1); Sodium 138 mMol/L (136-145); Total Protein 7.0 gm/dL (5.7-8.2); eGFR > 60 See Note
[2025-05-08] VITALS (19 sets, daily range): BP systolic 122–151; BP diastolic 76–94; PULSE 71–90; RESP 12–25; TEMP 36.1–36.6; O2SAT 95–98; BMI 37.1
[2025-05-08] MEDS: ACETAMINOPHEN 325 MG TABLET 650 MG PO (06:49)
[2025-05-08] MEDS: MELOXICAM 7.5 MG TABLET PO (06:49)
[2025-05-08] MEDS: PREGABALIN 75 MG CAPSULE PO (06:49)
[2025-05-08] MEDS: RINGERS LACTATED 1000 ML 1,000 ML 20 ML IV (06:50)
--- NOTE | 2025-05-08 07:22 | SUR.PREOP ---
Patient expressed gratitude for prayer before their procedure.
--- NOTE | 2025-05-08 10:29 | ESOP_ITS ---
Date of Procedure 05/08/25 Pre Op Diagnosis left knee osteoarthritis Post Op Diagnosis left knee osteoarthritis Procedure left total knee replacement quentin Findings full thickness cartilage loss and osteophytes Procedure Description Indication: The patient has a long history of left knee pain. X-rays show degenerative arthritis involving the knee. Over the past several years the patient has had increasing pain, progressive limitation in function. He has failed conservative measures including activity modification, physical therapy, injections, anti- inflammatories, and assistive devices. After a lengthy discussion of the risks and benefits, the patient presents now for total knee replacement. The nature and purpose of the total knee replacement, alternative method(s) of treatment, the material risks involved, and the possibility of complications were fully explained to the patient. The patient was told the most common risks and complications associated with a total knee replacement include, but are not limited to blood clots in the leg, fatal pulmonary embolism, dislocation of the prosthesis, intraoperative and postoperative fractures of the femur or tibia, infection, failure of the prosthesis or grafting materials, complications from anesthesia, reactions to blood transfusions, postoperative leg length inequality, instability of the knee replacement, nerve damage or injury, vascular injury, delayed wound healing, infections, other injury or even . In addition, there are risks associated with anesthesia given during this operation, temporary or permanent numbness on the skin lateral to the incision can be a complication unique to total knee surgery, and kneeling can be painful after knee replacement surgery. Also, the patient was told that after undergoing a total knee replacement there may still be pain or disability. We discussed with the patient that we will be using a robot-assisted technology. We discussed that there is a possibility of converting to manual instrumentation. The patient was informed that the success of this operation in part depends upon the mechanical devices which are going to be implanted and that these devices can fail or malfunction, and may need to be repaired or replaced and there are no guarantees as to the longevity of this device or its part and that it or its parts could fail prematurely. Finally, the patient was asked to follow completely and fully with all advice and recommended treatments, and that recovery and ultimate outcome are affected by their compliance with recommended treatment. Surgical technique: Patient was marked and consented in the pre-operative area. The patient was brought to the operating room and placed on the operating table in a supine position. Prior to positioning, a timeout procedure was performed between the surgeon, the anesthesiologist, and the nursing staff where the patient and the operative side were identified and confirmed. After adequate general anesthetic was obtained, the left lower extremity was prepped and draped in the usual sterile fashion. A weight based dose of Cefazolin were administered within 1 cassandra r prior to incision. The robot was preregistered and calibrated before the incision. The extremity was exsanguinated with an esmarch badge and tourniquet inflated to 250mmHg. A midline incision was made. A median parapatellar arthrotomy was made. The patella was subluxed laterally. A medial release was performed to expose the medial tibia. His femoral and tibial pins were placed through an intra incisional manner for both cases. Every effort was made to ensure that the distalmost aspect of the pin was hung in the second cortex. The arrays were then tightened several times to ensure that it was fixed for the remainder of the case. Both femoral and tibial checkpoints were then placed. We then went through the registration process of the bone. We then assessed the knee deformity and attempted to correct it. We also used the robot to aid in judging laxity in both extension and flexion. Final based on laxity and alignment we changed the preoperative assessment to obtain proper proper implant positioning and to correct deformity. Attention was then placed to the tibia. We made a tibial cut using the robot ensuring that both the MCL and the patella tendon were protected with retractors. We then went to the femur and made the posterior cut followed by the anterior cut and the anterior chamfer. The bone was then removed and we made a distal femur cut and a posterior chamfer cut. We verified all cuts. A trial reduction was performed with a size 3 femoral component and a size 3 keeled tibial component. T The patella tracked centrally, and no lateral retinacular release was necessary. The trial implants were removed. The arrays, pins, and checkpoints were all removed. We performed a verification that all pins were removed. The cut bone surfaces were lavaged. A size 3 left femoral component, a size 3 keeled tibial component were impacted into position. The knee was felt to be well balanced in the sagittal and coronal plane. The final 3x11 mm cruciate- substituting articular insert was impacted into the tibial tray. The knee was brought out to full extension, flexed up to 120 degrees. It was stable to varus and valgus stress and appropriately balanced in flexion and extension. The wounds were copiously irrigated following deflation of tourniquet. The medial retinaculum was reapproximated with #1 vicryl and quill. The subcutaneous tissues were closed with 0 and 2-0 interrupted Vicryl. The skin was closed with 3-0 Monofilament V loc suture. A sterile dressing was applied. The patient was transferred to a bed and brought to recovery in stable condition. The patient tolerated the procedure well. There were no intraoperative complications. Sponge and needle counts were correct times 2. As the attending surgeon, I atttariq I was present and performed the entire operation. Grafts/Implants Size 3 CR Femur Size 3 Tibia 11mm poly CS Anesthesia spinal Pathology / specimen None Pathology comment: none Estimated Blood Loss 150 Condition Stable Disposition same day Surgeon Arjun Hall MD Surgical Staff Operation Date: 05/08/25 10:15 Case Staff Anesthesiologist: Derrick Monteiro RN First Assistant: Hillary Ann
--- NOTE | 2025-05-08 10:31 | XR_ITS ---
EXAMINATION: Left knee 2 views TECHNIQUE: AP lateral left knee 2 views Date and time: May 08, 2025, 1119 hours INDICATIONS: Postop knee surgery today. FINDINGS: Total left knee arthroplasty. Satisfactory alignment Moderate osteopenia No fracture IMPRESSION: Total left knee arthroplasty with satisfactory alignment
--- NOTE | 2025-05-08 10:55 | SUR.PHASEI ---
pt received from OR in recovery bay 5. pt asleep but responds to voice, breathing unlabored on oxymask 10l. v/s stable. pt dressing to left lower extremity cdi. report received from Marry WOOTEN and Margaret BAUMAN.
--- NOTE | 2025-05-08 11:40 | SUR.PHASEII ---
pt lying in gurney with eyes closed, breathing unlabored, dressing to left lower extremity clean, dry, and intact, csm intact to bilateral lower extremities, report from Laith WOOTEN
--- NOTE | 2025-05-08 12:13 | SUR.PHASEII ---
report to Laith WOOTEN
--- NOTE | 2025-05-08 14:35 | SUR.PHASEII ---
pt able to tolerate oral fluids without difficulty swallowing or nausea/vomiting.
--- NOTE | 2025-05-08 17:00 | SUR.PHASEII ---
pt awake and alert, breathing unlabored on room air. v/s stable. pt dressing to left knee cdi. pt cleared by physical therapist Francis. pt able to ambulate to Pacu hallway using walker. d/c instructions given with daughter Lisa in room, all questions answered. pt d/c via wheelchair with all belongings.
== END 2025-05-08 17:00 | disposition home or self-care (01) ==
PROVIDERS: Anesthesiology; PCP Physician Assistant; Referring Provider Orthopaedic Surgery Adult Reconstructive Orthopaedic Surgery; Visit Provider Orthopaedic Surgery Adult Reconstructive Orthopaedic Surgery
PROC: (CPT 20985; principal; 2025-05-08 10:00)
DX: M17.12 Unilateral primary osteoarthritis, left knee (principal); M25.762 Osteophyte, left knee
CPT/HCPCS: 20985; 27447; 36415; 73560; 80053; 84703; 85025; 85610; 85730; 97162; A4217; A4649; C1713; C1776; J0131; J0690; J1100; J1885; J2250; J2371; J2405; J2704; J2795; J3010; J3490; J7120; A4648; A9270

== ENCOUNTER 2025-05-23 10:48 | Outpatient (AMB) | payer MEDICAID, SELFPAY ==
--- NOTE | 2025-05-23 11:19 | ORTHONT_ITS ---
Vital signs 05/23/25 11:20 Height 1.63 m Height Method Measured Weight 97.296 kg Weight Measurement Method Standing Scale BMI 36.6 BP 136/85 H Blood Pressure Source Automatic Cuff Blood Pressure Location Left Upper Arm Position Sitting Respiration 19 Pulse 112 H Pulse Source Monitor Temp 97.8 F Temp Source Temporal Artery Scan Pulse Oximetry (%) 96 Oxygen Delivery Method Room Air Med/Allergies Allergies & Medications Allergies No Known Allergies Allergy (Verified 05/23/25 11:21) Medication Reconciliation divalproex 500 mg tablet,delayed release (Depakote) 1,000 mg PO DAILY 11/04/22 [History Confirmed 05/23/25] tirzepatide (weight loss) 2.5 mg/0.5 mL subcutaneous pen injector (Zepbound) 2.5 mg subcut QWEEK 05/03/25 [History Confirmed 05/23/25] acetaminophen 500 mg tablet (Acetaminophen Extra Strength) 1,000 mg (2 x 500 mg) PO Q6H PRN pain #90 tabs 05/08/25 [Rx Confirmed 05/23/25] aspirin 81 mg tablet,delayed release 81 mg PO BID #60 tabs 05/08/25 [Rx Confirmed 05/23/25] doxycycline hyclate 100 mg tablet 100 mg PO BID #14 tabs 05/08/25 [Rx Confirmed 05/23/25] gabapentin 300 mg capsule 300 mg PO .qhs #30 caps 05/08/25 [Rx Confirmed 05/23/25] oxycodone 5 mg tablet 5 mg PO Q6H PRN pain #28 tabs 05/08/25 [Rx Confirmed 05/23/25] sennosides 8.6 mg-docusate sodium 50 mg tablet (Senna-S) 1 tab-cap PO QDAY #30 tabs 05/08/25 [Rx Confirmed 05/23/25] Exam Exam Patient is in no acute distress and is cooperative with the examination today. Breathing is nonlabored. In no respiratory distress. Bilateral extremities were evaluated and demonstrates sensation intact to light touch. Palpable pedal pulses are present. No significant edema is present. Bilateral hips were examined. The patient has no pain with log roll of the hips. Internal rotation to 30 degrees and external rotation to 30 degrees is painless. Negative FADIR. L knee incision is c/d/i. ROM is 0-95 Assessment and Plan Problem List (1) Arthritis of left knee: Status: Acute Plan: She is doing well status post left total knee replacement. Will refill her Tylenol. She will start physical therapy outpatient Office Procedures GNS Level of Care Nursing/Assessment Patient Status: Established Patient Nursing Assessment/Reassesment: Medication Reconciliation, Update PMH in EMR and Vital Signs Coordination of Care: Complex Care and Chronic Disease 1-5, Education Complex Pt/Fam, Consent,records obtained, informed consent, Results/Orders obtained and Staff clarify orders Special Needs: Language special needs Established Patient Charge Established Patient Point Assignment: 95 Established Patient Point Charge: EP Level 3 (80-115) MA Intake Visit Data Collection New Patient or Established: Established Patient (seen at [facility] within 3 years) Reason for Visit:: 2 WEEK LT TKA Seen by Clinical Staff ONLY (RN/MA): No School Occupational Therapist Required: Yes PCP or OBGYN visit in last 3 months: Yes Hx Now: No Do You Feel Safe at Home: Yes Authorities Contacted: N/A Questionairres Past Medical History Past Medical History Have you ever been diagnosed with any of the following: Neurological Problems Seizures: Yes Epilepsy: Yes Cardiology Problems Congestive Heart Failure: No Hypertension: No Varicose Veins: Yes Respiratory Problems Chronic Obstructive Pulmonary Disease (COPD): No Smoking: No Smoking Cessation Counseling: No Smoking Exposure: No Stomache/Intestinal Problems Ulcer: No Gastroesophageal Reflux Disease: No Obesity: Yes Genital/Urinary Problems Renal Disease: No Reproductive Problems Previous Pregnancies: Yes Musculoskeletal Problems Arthritis: Yes Endocrine Problems Diabetes Mellitus Type 1: No Diabetes Mellitus Type 2: No Blood Problems Anemia: Yes Psychologic Problems Depression: No Anxiety: No Other Problems Hospitalization: Yes (seizure) Shingles: No Falls: No Blood Transfusions: No Blood Transfusion Reaction: No (n/a) Anesthesia Reactions: No MRSA: No VRSA: No Vancomycin-Resistant Enterococci: No Chicken Pox: No Measles: No Mumps: No Cancer: No Subjective Visit Visit for: follow up visit and knee Immunization / Flu Flu Vaccine in the Last 12 Months: Yes Flu Vaccine Exclusion Criteria: No Exclusion Criteria and Already Received History of Present Illness Chief complaint: 2 WEEK LT TKA Michell is a pleasant 49-year-old female with bilateral knee pain for year. She is s/p L TKA. Personal History Red flag PMH: none BMI Counceling provided: Yes Pain Pain level (0-10): 9 Pain duration: COMES AND GOES Pain location: anterior Pain quality: sharp and burning Ambulatory data Ambulatory device: walker and none Walking distance (minutes): 5 Treatments Number of previous injections: 1 Improvement with previous injections: No Number of Physical Therapy sessions: 12 Improvement with PT: No Improvement with NSAIDS: no Review of Systems Review of Systems: All systems negative unless otherwise noted in HPI.
[2025-05-23 11:20] VITALS: BP 136/85; PULSE 112; RESP 19; TEMP 36.6; O2SAT 96; BMI 36.6
== END 2025-05-23 11:27 | disposition home or self-care (01) ==
LOC: HODSRG 10:48
PROVIDERS: PCP Physician Assistant; Referring Provider Physician Assistant; Supervising Provider Orthopaedic Surgery Adult Reconstructive Orthopaedic Surgery; Visit Provider Orthopaedic Surgery Adult Reconstructive Orthopaedic Surgery
DX: Z47.1 Aftercare following joint replacement surgery (principal); Z96.652 Presence of left artificial knee joint
CPT/HCPCS: 99213; G0463

== ENCOUNTER 2025-06-20 08:35 | Outpatient (AMB) | payer MEDICAID, SELFPAY ==
--- NOTE | 2025-06-20 08:54 | ORTHONT_ITS ---
Vital signs 06/20/25 08:55 Height 1.63 m Height Method Stated Weight 99.082 kg Weight Measurement Method Standing Scale BMI 37.3 BP 120/78 Blood Pressure Source Automatic Cuff Blood Pressure Location Left Upper Arm Position Sitting Respiration 18 Pulse 90 Pulse Source Monitor Temp 97.0 F Temp Source Temporal Artery Scan Pulse Oximetry (%) 97 Oxygen Delivery Method Room Air Med/Allergies Allergies & Medications Allergies No Known Allergies Allergy (Verified 06/20/25 08:55) Medication Reconciliation divalproex 500 mg tablet,delayed release (Depakote) 1,000 mg PO DAILY 11/04/22 [History Confirmed 06/20/25] tirzepatide (weight loss) 2.5 mg/0.5 mL subcutaneous pen injector (Zepbound) 2.5 mg subcut QWEEK 05/03/25 [History Confirmed 06/20/25] aspirin 81 mg tablet,delayed release 81 mg PO BID #60 tabs 05/08/25 [Rx Confirmed 06/20/25] doxycycline hyclate 100 mg tablet 100 mg PO BID #14 tabs 05/08/25 [Rx Confirmed 06/20/25] gabapentin 300 mg capsule 300 mg PO .qhs #30 caps 05/08/25 [Rx Confirmed 06/20/25] oxycodone 5 mg tablet 5 mg PO Q6H PRN pain #28 tabs 05/08/25 [Rx Confirmed 06/20/25] sennosides 8.6 mg-docusate sodium 50 mg tablet (Senna-S) 1 tab-cap PO QDAY #30 tabs 05/08/25 [Rx Confirmed 06/20/25] acetaminophen 500 mg tablet (Acetaminophen Extra Strength) 1,000 mg (2 x 500 mg) PO Q6H PRN pain #90 tabs 05/23/25 [Rx Confirmed 06/20/25] ibuprofen 400 mg tablet 400 mg PO Q8H PRN pain #30 tabs 05/23/25 [Rx Confirmed 06/20/25] Exam Exam Patient is in no acute distress and is cooperative with the examination today. Breathing is nonlabored. In no respiratory distress. Bilateral extremities were evaluated and demonstrates sensation intact to light touch. Palpable pedal pulses are present. No significant edema is present. Bilateral hips were examined. The patient has no pain with log roll of the hips. Internal rotation to 30 degrees and external rotation to 30 degrees is painless. Negative FADIR. L knee incision is c/d/i. ROM is 0-105 degrees Assessment and Plan Problem List (1) Arthritis of left knee: Status: Acute Plan: She is doing well status post left total knee replacement. Will refill her Tylenol. She has been doing outpatient pt. Office Procedures GNS Level of Care Nursing/Assessment Patient Status: Established Patient Nursing Assessment/Reassesment: Medication Reconciliation, Update PMH in EMR and Vital Signs Coordination of Care: Complex Care and Chronic Disease 1-5, Education Complex Pt/Fam, Consent,records obtained, informed consent, Results/Orders obtained and Staff clarify orders Established Patient Charge Established Patient Point Assignment: 95 Established Patient Point Charge: EP Level 3 (80-115) MA Intake Visit Data Collection New Patient or Established: Established Patient (seen at [facility] within 3 years) Reason for Visit:: 6 WK TKA L Seen by Clinical Staff ONLY (RN/MA): No Driver Examiner Required: Yes PCP or OBGYN visit in last 3 months: Yes Hx Now: No Do You Feel Safe at Home: Yes Authorities Contacted: N/A Questionairres Past Medical History Past Medical History Have you ever been diagnosed with any of the following: Neurological Problems Seizures: Yes Epilepsy: Yes Cardiology Problems Congestive Heart Failure: No Hypertension: No Varicose Veins: Yes Respiratory Problems Chronic Obstructive Pulmonary Disease (COPD): No Smoking: No Smoking Cessation Counseling: No Smoking Exposure: No Stomache/Intestinal Problems Ulcer: No Gastroesophageal Reflux Disease: No Obesity: Yes Genital/Urinary Problems Renal Disease: No Reproductive Problems Previous Pregnancies: Yes Musculoskeletal Problems Arthritis: Yes Endocrine Problems Diabetes Mellitus Type 1: No Diabetes Mellitus Type 2: No Blood Problems Anemia: Yes Psychologic Problems Depression: No Anxiety: No Other Problems Hospitalization: Yes (seizure) Shingles: No Falls: No Blood Transfusions: No Blood Transfusion Reaction: No (n/a) Anesthesia Reactions: No MRSA: No VRSA: No Vancomycin-Resistant Enterococci: No Chicken Pox: No Measles: No Mumps: No Cancer: No Subjective Visit Visit for: follow up visit and knee Immunization / Flu Flu Vaccine in the Last 12 Months: Yes Flu Vaccine Exclusion Criteria: No Exclusion Criteria and Already Received History of Present Illness Chief complaint: 2 WEEK LT TKA Michell is a pleasant 49-year-old female with bilateral knee pain for year. She is s/p L TKA and is 6 weeks out Personal History Red flag PMH: none BMI Counceling provided: Yes Pain Pain level (0-10): 9 Pain duration: COMES AND GOES Pain location: anterior Pain quality: sharp and burning Ambulatory data Ambulatory device: walker and none Walking distance (minutes): 5 Treatments Number of previous injections: 1 Improvement with previous injections: No Number of Physical Therapy sessions: 12 Improvement with PT: No Improvement with NSAIDS: no Review of Systems Review of Systems: All systems negative unless otherwise noted in HPI.
[2025-06-20 08:55] VITALS: BP 120/78; PULSE 90; RESP 18; TEMP 36.1; O2SAT 97; BMI 37.3
== END 2025-06-20 09:10 | disposition home or self-care (01) ==
PROVIDERS: PCP Physician Assistant; Referring Provider Physician Assistant; Supervising Provider Orthopaedic Surgery Adult Reconstructive Orthopaedic Surgery; Visit Provider Orthopaedic Surgery Adult Reconstructive Orthopaedic Surgery
DX: Z47.1 Aftercare following joint replacement surgery (principal); Z96.652 Presence of left artificial knee joint; M25.562 Pain in left knee; M25.561 Pain in right knee; E66.9 Obesity, unspecified; Z68.37 Body mass index [BMI] 37.0-37.9, adult
CPT/HCPCS: 99213; G0463